=== PATIENT | male | born 1960 | race Caucasian/White ===

== ENCOUNTER 2018-03-20 00:04 | Observation (INO) | payer MEDICARE, MEDICAID, SELFPAY ==
--- NOTE | 2018-03-19 23:47 | DI.CT.S_ITS ---
PROCEDURE: CT HEAD/BRAIN WO CON INDICATIONS: stroke TECHNIQUE: Noncontrast 4.5 mm thick angled axial sections acquired from the foramen magnum to the vertex, with coronal and sagittal reformats. For radiation dose reduction, the following was used: automated exposure control, adjustment of mA and/or kV according to patient size. COMPARISON: [facility], CT, HEAD WITHOUT CONTRAST, 05/16/2017, 19:26. FINDINGS: Image quality: Excellent. CSF spaces: Basal cisterns are patent. No extra-axial fluid collections. Ventricles are normal in size and shape. Brain: No midline shift. Multiple presumed chronic lacunar infarcts involving the basal ganglia bilaterally, right cerebellar hemisphere, and bilateral thalami. No intracranial masses or hemorrhage. Allred-white matter interface is normal. Skull and face: Calvarium and visualized facial bones are intact, without suspicious lesions. Sinuses: Visualized sinuses and mastoids are clear. IMPRESSION: Multiple white matter hypodensities presumably chronic lacunar infarcts as detailed above. No acute intracranial process. Concordant with the preliminary study interpretation. Dictated by: Toni Lopez M.D. on 03/20/2018 at 7:36 Approved by: Toni Lopez M.D. on 03/20/2018 at 7:38
[2018-03-20] VITALS (11 sets, daily range): BP systolic 147–229; BP diastolic 93–126; PULSE 68–88; RESP 18–22; TEMP 36.6–37.1; O2SAT 94–98; BMI 32.5
--- NOTE | 2018-03-20 00:04 | ED.NEUROSD ---
HPI - Neuro Symptoms/Deficit General Chief Complaint: Neuro Symptoms/Deficit Stated Complaint: Possible Stroke Time Seen by Provider: 03/20/18 00:04 Source: patient and EMS Mode of arrival: EMS Limitations: no limitations History of Present Illness HPI Narrative: A 57-year-old male with extensive history of hypertension, coronary artery disease, colon and lung cancer presents with sudden onset right-sided the neurologic symptoms that started probably at 2300. He lives at home alone and noted these findings and called EMS for transportation. They arrived and found him with similar symptoms. He additionally complains that he had had some blurred vision which had resolved prior to his arrival. There unsuccessful placing an IV given his history of IV drug abuse. Given her symptoms and time frame patient with activated as a code stroke and taken directly for CT head scan Onset (ago): hour(s) Time: 23:00 Location: speech, right arm and right leg History of same: Yes Severity: moderate Quality: weak and numb Relieving factors: none Exacerbating factors: none Context: gradual onset Related Data Previous Rx's Medication Instructions Recorded metoprolol succinate 100 mg PO QDAY 30 Days #0 ter 10/02/17 levofloxacin [Levaquin] 750 mg PO QDAY #7 tab 11/20/17 metronidazole [Flagyl] 500 mg PO TID #21 tab 11/20/17 Allergies Allergy/AdvReac Type Severity Reaction Status Date / Time cephalexin [From KEFLEX] Allergy Severe Unverified 12/14/17 12:56 codeine [CODEINE] Allergy Severe ANAPHYLACTIC Unverified 12/14/17 12:56 SHOCK NYLON ADHESIVE TAPE Allergy Unknown Uncoded 12/14/17 12:56 Review of Systems Review of Systems All systems reviewed & are unremarkable except as noted in HPI and below Constitutional Denies chills, Denies fever(s), Denies lethargy and Reports weakness Eyes Denies change in vision, Denies eye discharge, Denies irritation and Reports loss of vision ENT Ears, Nose, Mouth, and Throat: Denies change in voice, Denies neck pain and Denies sore throat Cardiovascular Denies chest pain, Denies irregular heart rhythm, Denies lightheadedness, Denies palpitations, Denies dyspnea, Denies dyspnea on exertion and Denies orthopnea Respiratory Denies cough, Denies dyspnea, Denies dyspnea on exertion and Denies wheezing Gastrointestinal Gastrointestinal: Denies abdominal pain, Denies change in bowel habits, Denies diarrhea, Denies nausea and Denies vomiting Genitourinary Denies hematuria, Denies flank pain, Denies urinary incontinence and Denies urinary urgency Musculoskeletal Denies neck pain and Reports numbness Integumentary/Breasts Denies pruritus, Denies erythema, Denies rash and Denies wounds Neurologic Denies confusion, Reports loss of vision, Reports numbness and Reports weakness Psychiatric Denies anxiety, Denies confusion, Denies depression, Denies homicidal ideation and Denies suicidal ideation Endocrine Denies palpitations Hematologic/Lymphatic Denies easy bruising Allergic/Immunologic Denies wheezing PFSH Social History household members: none Smoking Status: Current every day smoker alcohol intake: former Exam Narrative Exam Narrative: 57-year-old male resting comfortably in no obvious distress Initial Vital Signs Initial Vital Signs: Vital Signs Temperature 98.7 F 03/20/18 00:17 Pulse Rate 88 03/20/18 00:17 Respiratory Rate 18 03/20/18 00:17 Blood Pressure 214/122 H 03/20/18 00:17 Pulse Oximetry 98 03/20/18 00:17 Const General: cooperative and well developed Nutritional Appearance: well nourished Orientation: alert, awake, oriented x3 and not confused HENNJ Head: normocephalic and atraumatic Ears: external ears normal Nose: external nose normal and nasal discharge Face and sinus: face symmetric and No dry mucous membranes Mouth: oral mucosae normal and moist mucous membranes Teeth and gingiva: dentition normal Eyes Pupils: PERRL EOM: EOM intact bilaterally Neck Neck: normal visual inspection, full ROM and No tender Chest Chest: normal inspection of the chest Resp Effort & Inspection: normal respiratory effort, able to speak in complete sentences, no respiratory distress and no use of accessory muscles Auscultation: clear to auscultation bilaterally, no rales, no rhonchi and no wheezes GI Palpation: soft, no hepatosplenomegaly, No guarding, No pulsatile mass and No tender Auscultation: normal bowel sounds Skin General: no rashes or lesions noted, No jaundice and No petechiae Neuro General: alert, awake and oriented x3 Cranial Nerves: CN's II-XI intact bilaterally Cognition: normal cognition Speech: speech normal Motor: muscle tone normal throughout Sensory Exam: no sensory deficits noted Extrem General: full ROM, no clubbing, cyanosis or edema, no pedal edema and no calf tenderness Psych Appearance: well kempt Mental Status: mental status grossly normal Speech and Movement: agitated Attitude: cooperative Thought Content: normal and suicidality Judgment: judgment good Scores NIH Stroke Scale Level of Conciousness: Alert, keenly responsive Ask month/age: Answers both questions correctly. Open/close eyes, close hand: Performs both tasks correctly Best gaze horizontal: Normal Visual winn: No visual loss Facial palsy: Normal symetrical movement Left arm drift: No drift for full 10 sec Right arm drift: No drift for full 10 sec Left leg drift: No drift for full 10 sec Right leg drift: No drift for full 10 sec Limb ataxia: Absent Sensory on face/arms/legs: Normal, no sensory loss Best language: No aphasia, normal Dysarthria: Normal Extinction or inattention: No abnormality Total NIH Stroke scale score: 0 Course Orders Ordered: ED Orders 03/19/18 23:47 CT head/brain wo con Stat 03/20/18 00:05 Basic Metabolic Panel Stat Complete Blood Count AUTO DIFF Stat Partial Thromboplastin Time Stat Prothrombin Time INR Stat 03/20/18 00:07 Urine Drug Screen, Rapid Stat EKG-12 Lead Stat 03/20/18 07:00 MR stroke Stat Sodium Chloride (Normal Saline 0.9%) 1,000 mls @ 80 mls/hr IV CONT MARVIN Discontinued Medications Aspirin (Aspirin Chew) 324 mg PO NOW ONE Stop: 03/20/18 01:16 Last Admin: 03/20/18 01:35 Dose: 324 mg Sodium Chloride (Normal Saline 0.9%) 1,000 mls @ 150 mls/hr IV CONT MARVIN Last Infusion: 03/20/18 01:55 Dose: 150 mls/hr Admin: 03/20/18 01:01 Dose: 150 mls/hr Labetalol HCl (Trandate) 20 mg IV NOW ONE Stop: 03/20/18 00:51 Last Admin: 03/20/18 01:01 Dose: 20 mg Metoprolol Tartrate (Lopressor) 100 mg PO NOW ONE Stop: 03/20/18 01:17 Last Admin: 03/20/18 01:36 Dose: 100 mg Nicotine (Nicoderm) 14 mg TOP NOW ONE Stop: 03/20/18 00:50 Last Admin: 03/20/18 01:01 Dose: 14 mg Reevaluation(s) Reevaluation #1: patient continues to be asymptomatic. On arrival his BP was quite elevated and he was asymptomatic raising the question of whether this was HTN emergency or TIA, suggesting TIA given lack of symptoms and persistent HTN. Time: 01:15 Vital Signs - 8 hr 03/20/18 00:17 03/20/18 00:45 03/20/18 01:01 Temperature 98.7 F Pulse Rate 88 82 85 Respiratory Rate 18 18 Blood Pressure 214/122 H 199/109 H Blood Pressure [Left Arm] 229/115 H Pulse Oximetry 98 96 03/20/18 01:13 03/20/18 01:32 03/20/18 01:53 Temperature Pulse Rate 82 83 87 Respiratory Rate 21 18 Blood Pressure 181/93 H Blood Pressure [Left Arm] 170/93 H 181/93 H Pulse Oximetry 95 MDM - Neuro Symptoms/Deficit Lab Data Result diagrams: 03/20/18 00:05 03/20/18 00:05 Lab Results 03/20/18 03/20/18 03/20/18 Range/Units 00:05 00:05 00:05 WBC 12.2 H (4.5-11.0) X10^3/uL RBC 5.09 (4.5-5.9) X10^6/uL Hgb 15.1 (13.5-17.5) g/dL Hct 44.2 (41-53) % MCV 86.9 (80-100) fL MCH 29.6 (26-34) PG MCHC 34.1 (30-36) % RDW 13.5 (11.6-14.8) % Plt Count 162 (150-400) X10^3/uL Neut % (Auto) 67.3 (50-75) % Lymph % (Auto) 20.7 L (25-40) % [place] % (Auto) 8.7 (3-14) % Eos % (Auto) 2.5 (2-4) % Baso % (Auto) 0.8 (0-2) % Neut # (Auto) 8200 H (7428-7334) /uL PT 11.5 (10.1-12.7) SECONDS INR 1.1 (0.9-1.3) APTT 32 (26.4-36.2) SECONDS Sodium 143 (137-145) mmol/L Potassium 3.2 L (3.4-5.1) mmol/L Chloride 105 (98-107) mmol/L Carbon Dioxide 26 (22-32) mmol/L BUN 14 (9-20) mg/dL Creatinine 1.10 (0.66-1.25) mg/dL Estimated GFR > 60.0 (>60) mL/min BUN/Creatinine Ratio 12.7 (6-22) Glucose 125 H (70-100) mg/dL Calcium 9.3 (8.4-10.2) mg/dL Discharge Plan Departure Patient Disposition: Admitted as Observation Clinical Impression: Transient ischemic attack, acute, Hypertension Discharge Date/Time: 03/20/18 02:24 Interventions: ED Discharge Assessment Last Done: 03/20/18 02:21 Admit Date/Time: 03/20/18 01:27 Admit Provider: Rafa Metcalf V
[2018-03-20 00:35] LABS: INR 1.1 (0.9-1.3); Prothrombin Time 11.5 SECONDS (10.1-12.7)
[2018-03-20 00:37] LABS: PTT Partial Thromboplastin Tim 32 SECONDS (26.4-36.2)
[2018-03-20 00:39] LABS: BUN Creatinine Ratio 12.7 (6-22); Blood Urea Nitrogen 14 mg/dL (9-20); Calcium 9.3 mg/dL (8.4-10.2); Carbon Dioxide 26 mmol/L (22-32); Chloride 105 mmol/L (98-107); Estimated Glomerular Filt Rate > 60.0 mL/min (>60); Glucose 125 mg/dL (70-100); HEMOLYSIS < 15 (0-50); Potassium 3.2 mmol/L (3.4-5.1); Sodium 143 mmol/L (137-145)
[2018-03-20 00:45] LABS: Add Manual Diff / Slide Review NO; Basophils Percent Auto 0.8 % (0-2); Eosinophils Percent Auto 2.5 % (2-4); Hematocrit 44.2 % (41-53); Hemoglobin 15.1 g/dL (13.5-17.5); Lymphocytes Percent Auto 20.7 % (25-40); Mean Corpuscular HGB Conc 34.1 % (30-36); Mean Corpuscular Hemoglobin 29.6 PG (26-34); Mean Corpuscular Volume 86.9 fL (80-100); Monocytes Percent Auto 8.7 % (3-14); Neutrophils Absolute Auto 8200 /uL (3000-5900); Neutrophils Percent Auto 67.3 % (50-75); Platelet Count 162 X10^3/uL (150-400); Red Blood Cell Count 5.09 X10^6/uL (4.5-5.9); Red Cell Distribution Width 13.5 % (11.6-14.8); White Blood Cell Count 12.2 X10^3/uL (4.5-11.0)
[2018-03-20] MEDS: SODIUM CHLORIDE 0.9% 1,000 ML 150 ML IV (01:01)
[2018-03-20] MEDS: LABETALOL 20 MG/4 ML SYRINGE IV (01:01)
[2018-03-20] MEDS: NICOTINE 14 PATCH 14 MG TOP (01:01)
[2018-03-20] MEDS: ASPIRIN 81 MG TAB 324 MG PO (01:35)
[2018-03-20] MEDS: METOPROLOL 50 MG TABLET 100 MG PO (01:36)
--- NOTE | 2018-03-20 03:36 | PC.NURSE ---
Admit/ Shift note: Pt arrived via stretcher at 0215, able to amb in the room and to the bed, pt reported feeling weak. Tele placed on Pt. BP remains elevated. IV from ER infiltrated, now IV started in right upper arm, one attempt and tolerated well. Pt reports having sciatic pain. It is chronic, 7/10 most days and he reports that he uses recreational marijuana to manage the pain. Pt reports that he does not take his prescribed BP meds but uses the marijuana for his BP as well. States last used it 4-5 days ago. IV fluids running as ordered. Pt has full rom in all extremities, PP++, BT x 4, denies nausea. 95% O2 on RA, occ wheezes noted throughout all lung winn, but denies SOB. Pt oriented to the room, the bed controls and the call light.
--- NOTE | 2018-03-20 07:00 | DI.MRI.S_ITS ---
PROCEDURE: MR STROKE Pre- and post-contrast brain MRI, non-contrast brain MR angiogram, pre- and postcontrast neck MR angiogram INDICATIONS: TIA TECHNIQUE: Brain: Noncontrast axial T1 spin echo, axial T2 fast spin echo, sagittal and axial FLAIR, coronal T2 fast spin echo, axial gradient echo, axial diffusion and ADC through the brain. After the administration of contrast, axial 3D VIBE of the cranial vasculature and brain. Brain MRA: Non-contrast 3-D time of flight MR angiogram, with multiple rwuclpd-ppsnhitdl-cfsliyigjt (MIP) reformats performed. Neck MRA: Axial and sagittal TruFISP through the neck. Coronal dynamic MR angiogram during administration of contrast in the arterial and venous phases, with 3-dimenstional ifexjmn-xbwgxqlsf-yymgngtcde (MIP) reformats constructed from subtraction images. COMPARISON: [facility], CT, HEAD WITHOUT CONTRAST, 05/16/2017, 19:26. [facility], CT, CT HEAD/BRAIN WO CON, 03/19/2018, 23:59. FINDINGS: Image quality: Excellent. BRAIN: CSF spaces: Ventricles are normal in size and shape. Basal cisterns are patent. No extra-axial fluid collections. Brain: Within the right basal ganglia laterally, there is a 14 mm diameter region of high T1 and FLAIR signal intensity without evidence of enhancement following intravenous contrast administration. Gradient echo imaging of this region demonstrates a rim of low T2 signal intensity and internal high signal intensity. Allrde-white matter interface is normal. Diffusion weighted images demonstrate small 3-4 mm diameter foci of elevated signal intensity within the left external capsule and medial thalamus, which demonstrate low ADC map signal and mild FLAIR signal elevation. Mild diffuse cerebral volume loss. Mild degree of patchy high FLAIR signal intensity within the periventricular and subcortical white matter. Small chronic infarcts within the bilateral basal ganglia and periventricular white matter posteriorly. Small chronic right thalamic infarct. Brainstem appears normal. Normal intravascular flow voids are present. No abnormal intracranial enhancement. Skull and face: Calvarial marrow signal is normal. Orbits appear normal. Sinuses: Sinuses and mastoids are clear. BRAIN MR ANGIOGRAM: Anterior circulation: Intracranial internal carotid arteries are normal in size and enhancement. The flow within the paired anterior cerebral arteries is normal and symmetric. The flow within the middle cerebral arteries is normal and symmetric. The anterior communicating artery is seen. No stenoses, occlusions, or aneurysms. Posterior circulation: The visualized portions of the vertebral arteries demonstrate normal caliber, and join to form a normal appearing basilar artery. The flow within the posterior cerebral arteries is normal and symmetric. No stenoses, occlusions, or aneurysms. NECK MR ANGIOGRAM: Carotids: Common origin of innominate and left common carotid arteries. The origins of the common carotid arteries appear patent. The calibers and courses of both common carotid arteries are normal. The bifurcation regions appear normal bilaterally. The internal carotid arteries demonstrate normal course and caliber. Posterior circulation: The origins of the vertebral arteries appear patent. More superior portions of both vertebral arteries demonstrate normal course and caliber, and join to form a normal appearing basilar artery. Miscellaneous: Subclavian arteries appear patent. Pre-contrast images through the neck show no soft tissue abnormalities. IMPRESSION: BRAIN MRI: 1. Small subacute infarcts within the left external capsule and left thalamus. 2. 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 There is internal high T1 and high FLAIR signal intensity within this lesion, which may indicate superimposed acute hemorrhage. Followup brain MRI or CT examination in 6 hours is recommended for further assessment. 3. The clinician caring for the patient could not be contacted. Thus, the findings were discussed with the charge nurse on the floor, Tim, on 03.20.18 at 1215 hrs. He understood the urgent nature of the findings and agreed to communicate them to the physician caring for the patient immediately. BRAIN MRA: 1. Negative cerebral MR angiography NECK MRA: 1. No internal carotid stenosis bilaterally. 2. Patent bilateral vertebral arteries. Dictated by: Nargis Ferrera M.D. on 03/20/2018 at 12:14 Approved by: Nargis Ferrera M.D. on 03/20/2018 at 12:33
[2018-03-20] MEDS: ENOXAPARIN 40 MG/0.4 ML SYRINGE SUBCUT (09:02)
[2018-03-20] MEDS: AMLODIPINE 5 MG TABLET 10 MG PO (09:02)
[2018-03-20] MEDS: POTASSIUM CHLORIDE 20 MEQ TAB PO (09:02)
[2018-03-20] MEDS: METOPROLOL ER 50 MG TABLET 100 MG PO (09:03)
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
--- NOTE | 2018-03-20 09:13 | CM.DPNOTE ---
Discharge Planning/Care Management DCP: assessment: Case received, EMR reviewed and met briefly with pt. Introduced self and role. Pt is a 57 year old male who admitted early this morning to care of hospitalist team. He is dozing in bed but does rouse to answer a couple of questions. Payer: Medicare and Medicaid. Pt confirms his contact is his mother Shaila Díaz and she will pick him up if he is d/c'd to home. He is here under observation status: UR RN Johana is reviewing. CM/social work referral is recommended and TORO Flores agrees to accept and follow prn. CM Discharge Assessment Start: 03/20/18 08:53 Freq: Status: Active Protocol: Document 03/20/18 08:54 ITV (Rec: 03/20/18 09:12 ITV [id number]) Discharge Planning Assessment History Provided By Patient Medical Record Is this patient on Medicare? Yes Prior Living Arrangements House Household Members none Transportation Arrangement If pt does d/c to home he says his mother, Shaila Díaz, will pick him up. 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 A social work consult was recommended. CM TORO agrees to accept. Review Status In Process Next Review Type Continued Stay Review
[2018-03-20] MEDS: LORazepam 1 MG TABLET PO (10:49)
--- NOTE | 2018-03-20 10:52 | PC.NURSE ---
Day shift: Pt ambulating in the lee on his own. Steady on feet. No s/s of chest pain or distress. Gave PO Ativan just now for upcoming MRI. Pt has drank 2 cups of coffee. Low fall risk per assessment.
--- NOTE | 2018-03-20 11:34 | PC.NURSE ---
Day shift: Off unit for MRI at approx 1120.
--- NOTE | 2018-03-20 12:07 | PC.NURSE ---
Day shift: Back on unit at approx 1207.
--- NOTE | 2018-03-20 12:37 | PC.NURSE ---
Day shift: Per discussion w/ extension service specialist in charge whom talked w/ Dr Mae the Lovenox injection orders have been stopped at this time. Pt walking in halls and borderline uncooperative. He states that he wants to go down and have a smoke.
--- NOTE | 2018-03-20 12:41 | PC.NURSE ---
12:[address] Ferrera re Pt Guillermo Díaz. Dr Ferrera stated information that he wanted to pass to Dr. Mae. Dr. Mae notified by phone with results of study by Dr. Ferrera. JIGAR Thompson informed as well of conversation and Dr Mae's verbal order to hold lovenox.
[2018-03-20 13:03] LABS: Hemoglobin A1C% w Est Avg Glu 5.5 % (4.0-6.0)
--- NOTE | 2018-03-20 13:14 | PC.NURSE ---
Day shift: Pt back on unit after going downstairs and being gone for approx 1/2 hour. He is in his room now.
--- NOTE | 2018-03-20 13:35 | PC.NURSE ---
Day shift: Discussed w/ Pt, in very simple terms, that he has a small bleed in the brain due to HTN and he needs to take it easy. He agrees to not go downstairs on his own again. He is a daily smoker. Dr Mae made aware of need for nicotine patch. Pt steady on feet and asymptomatic of any TIA or stroke. Low fall risk and independent in room.
[2018-03-20 13:49] LABS: Urine Amphetamines Negative (Negative); Urine Barbiturates Negative (Negative); Urine Benzodiazepines Negative (Negative); Urine Cocaine Negative (Negative); Urine MDMA Negative (Negative); Urine Methadone Negative (Negative); Urine Methamphetamines Negative (Negative); Urine Morphine/Opi cutoff 2000 Negative (Negative); Urine Oxycodone Negative (Negative); Urine Phencyclidine Negative (Negative); Urine Tetrahydrocannabinol Negative (Negative); Urine Tricyclic Antidepressant Negative (Negative)
--- NOTE | 2018-03-20 13:50 | PC.NURSE ---
Day shift: Refused placement of TELE after return from MRI. Discussed Pt's current disposition w/ Dr Mae. Patch ordered and will be placed stat.
[2018-03-20] MEDS: LOSARTAN 50 MG TABLET PO (13:55)
[2018-03-20] MEDS: NICOTINE 21 MG PATCH TOP (13:55)
--- NOTE | 2018-03-20 17:07 | CM.SWNOTE ---
MOTORBIKE COURIER Note: Reviewed chart. Received verbal referral from [facility]iposa/RODRI requesting MOTORBIKE COURIER consult for mental health and substance abuse history. Met with patient explained MOTORBIKE COURIER role. Patient alert and oriented at time of visit. Patient's Mother/Linda Díaz at bedside. Patient provided MOTORBIKE COURIER with permission to update his Mother on planning but reports that he is his own decision maker. Patient has h/o alcohol and meth abuse. Patient reports last drink was quit some time ago? Patient unsure on how long it's actually been but says awhile. Last illegal drug patient admits to using is meth in August 2017. Patient denies any active drug or alcohol abuse. Patient does report that he smokes marijuana prn. Currently patient resides alone and receives 72hrs per month of care giving hours under [facility]. Patient reports that he qualifies for program because of numerous back issues and hepatitis C. JOCELYNN is [facility] ph# [phone]. MOTORBIKE COURIER asked TALIB/Mary Ann to fax h&p to JOCELYNN 's attention at home and community. Patient reports that he drives at baseline. Patient's Mother concerned about patient's ability to properly care for himself. Per patient caregivers have been difficult to come by and even more difficult to keep. MOTORBIKE COURIER suggested possibility of AF in future for long-term planning. Patient does not believe he needs that at this time. Discussed long-term benefit and patient appeared more receptive. Patient and Mother aware that patient most likely will d/c home when stable and long-term planning will need to continue with JOCELYNN . Patient up in room and ambulating in [facility] hallways. P: Anticipate home when stable. MOTORBIKE COURIER to follow up with JOCELYNN for labor relations or personnel negotiator planning assessment. Patient good candidate for AFH that caters to individuals near his age. TORO Parker
--- NOTE | 2018-03-20 18:00 | DI.CT.S_ITS ---
PROCEDURE: CT HEAD/BRAIN WO CON INDICATIONS: acute intracerebral bleed. TECHNIQUE: Noncontrast 4.5 mm thick angled axial sections acquired from the foramen magnum to the vertex, with coronal and sagittal reformats. For radiation dose reduction, the following was used: automated exposure control, adjustment of mA and/or kV according to patient size. COMPARISON: [facility], MR, MR STROKE, 03/20/2018, 11:27. [facility], CT, CT HEAD/BRAIN WO CON, 03/19/2018, 23:59. FINDINGS: Image quality: Excellent. The ventricular system and cortical sulci demonstrate atrophy, consistent for the patient's stated age. There are areas of hypodense signal within the periventricular and subcortical white matter. Low attenuation is present within the left external capsule and thalamus consistent with previously seen ischemia. There is no acute intra-or extra axial fluid collection. No acute hemorrhage, mass lesion or midline shift. Brainstem is unremarkable. Globes are symmetrical. Sinuses are aerated. Osseous structures are intact. IMPRESSION: 1. No acute intracranial process. 2. Moderate atrophy and chronic microvascular ischemic changes. Dictated by: Meli Loo M.D. on 03/20/2018 at 18:17 Approved by: Meli Loo M.D. on 03/20/2018 at 18:27
--- NOTE | 2018-03-20 19:21 | PC.NURSE ---
Addendum entered by Tiffanie Thomas R.N. 03/20/18 19:41: Additionally, pt kept stating that he was wanted by [place] security and how he can make explosives w/MOM. Original Note: Pt appeared very irritated from 1500 on. Pt leaving floor x 2 to go outside and smoke and told not to and explained why. Pt then pacing in room, playing loud hard metal music, stating he wrote all the songs. 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 Continued to mention terrorists ideals and stated that he 'makes the best meth' and gave a detailed explanation. Security called as well as Elizabeth VALLEJO. Dr. Mae also notified about situation, no new orders. Pt then decided to leave [facility], form signed and pt escorted out of facility by [facility] and and Elizabeth VALLEJO.
--- NOTE | 2018-03-20 19:53 | P.DS_ITS ---
History of Present Illness Chief complaint: Possible Stroke Narrative: 57-year-old male with history of hypertension noncompliant with medication presents with episode of right-sided numbness and may be involving his face arm and leg. Symptoms lasted for about 45 min and then resolved. He came into the emergency room at the start of the symptoms but by the time he got here they are pretty much resolved. Blood pressure was extremely high 220/ 122. He has not taken medications for blood pressure for blood pressure for quite some time he is very nonspecific about what was prescribed in how long it has been since he took it he is somewhat uncooperative with questioning. It appears he has a similar presentation with uncontrolled hypertension about 2 years ago here to the hospital. Denies chest pain and denies shortness of breath currently denies any other neurologic symptoms Discharge Providers Date of admission: 03/20/18 01:27 Discharge provider: Alfredo Mae MD Summary Discharge Diagnosis: One. Subacute infarct in the left external capsule and left thalamus 2. Severe uncontrolled hypertension Hospital Course: Patient presented to the ER with right-sided numbness that lasted for about 45 min and then went away no other neurologic symptoms. 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 At that point the patient had no symptoms he had no more neurologic symptoms no headache no nausea no symptoms of acute bleed and there was no new neurologic symptoms his previous numbness had totally resolved. Blood pressure was still high so we kept treating the blood pressure with labetalol IV and oral Lopressor losartan and amlodipine in the blood pressure gradually came down. A repeat CT scan was done 6 hr after to see if there is any signs of bleeding and it was read as completely normal. These 2nd CT was done at about 6:00 p.m. and was read by Radiology shortly thereafter I was contacted by nursing staff at approximately 7:00 p.m. indicating the patient was very agitated and demanding to leave [facility]. I told him that I would be in shortly to talk with the patient by the by the time I got here the patient had had already left against medical advice and without any prescription for hypertension. He had been prescribed blood pressure medications in the past but never took them. Status at Discharge Functional status at discharge: independent ambulation Exam Vital Signs (past 8 hours): - 03/20/18 13:00 03/20/18 18:20 Temperature 98.1 F 98.4 F Pulse Rate 75 82 Respiratory Rate 22 22 Blood Pressure 163/99 H 147/93 H Pulse Oximetry 96 94 Oxygen Delivery Method Room Air Objective Labs Result Diagrams: 03/20/18 00:05 03/20/18 00:05 Labs: Laboratory Results - last 24 hr 03/20/18 03/20/18 03/20/18 00:05 00:05 00:05 WBC 12.2 H RBC 5.09 Hgb 15.1 Hct 44.2 MCV 86.9 MCH 29.6 MCHC 34.1 RDW 13.5 Plt Count 162 Neut % (Auto) 67.3 Lymph % (Auto) 20.7 L [place] % (Auto) 8.7 Eos % (Auto) 2.5 Baso % (Auto) 0.8 Neut # (Auto) 8200 H PT 11.5 INR 1.1 APTT 32 Sodium 143 Potassium 3.2 L Chloride 105 Carbon Dioxide 26 BUN 14 Creatinine 1.10 Estimated GFR > 60.0 BUN/Creatinine Ratio 12.7 Glucose 125 H Hemoglobin A1c Calcium 9.3 Urine Opiates Screen Ur Oxycodone Screen Urine Methadone Screen Ur Barbiturates Screen U Tricyclic Antidepress Ur Phencyclidine Scrn Ur Amphetamines Screen U Methamphetamines Scrn Ur MDMA Scrn (Ecstasy) U Benzodiazepines Scrn Urine Cocaine Screen U Marijuana (THC) Screen 03/20/18 03/20/18 12:50 Unknown WBC RBC Hgb Hct MCV MCH MCHC RDW Plt Count Neut % (Auto) Lymph % (Auto) [place] % (Auto) Eos % (Auto) Baso % (Auto) Neut # (Auto) PT INR APTT Sodium Potassium Chloride Carbon Dioxide BUN Creatinine Estimated GFR BUN/Creatinine Ratio Glucose Hemoglobin A1c 5.5 Calcium Urine Opiates Screen Negative Ur Oxycodone Screen Negative Urine Methadone Screen Negative Ur Barbiturates Screen Negative U Tricyclic Antidepress Negative Ur Phencyclidine Scrn Negative Ur Amphetamines Screen Negative U Methamphetamines Scrn Negative Ur MDMA Scrn (Ecstasy) Negative U Benzodiazepines Scrn Negative Urine Cocaine Screen Negative U Marijuana (THC) Screen Negative Discharge Plan Discharge Plan Discharge Problem: Transient ischemic attack, acute, Hypertension Patient Disposition: Left Against Medical Advice Discharge Data Attending Provider: Rafa Metcalf V Admit Date/Time: 03/20/18 01:27
--- NOTE | 2018-03-21 10:34 | CM.DPNOTE ---
DCP/continued: Reviewed chart. Patient discharged from [facility] on 03-20-18. METER SHOP SUPERVISOR asked TALIB/Mary Ann to fax d/c summary to JOCELYNN/KRUPA at [facility] P: Home TORO Parker
== END 2018-03-20 19:20 | disposition left against medical advice (07) ==
LOC: ED 01:23 → AC 01:27
PROVIDERS: Internal Medicine; Admitting Provider Internal Medicine; Emergency Provider Emergency Medicine; Visit Provider Internal Medicine
DX: I63.8 Other cerebral infarction (principal); R53.1 Weakness; I10 Essential (primary) hypertension; Z91.14 Patient's other noncompliance with medication regimen; F17.210 Nicotine dependence, cigarettes, uncomplicated; Z53.21 Procedure and treatment not carried out due to patient leaving prior to being seen by health care provider; F15.11 Other stimulant abuse, in remission
CPT/HCPCS: 36415; 70450; 70553; 80048; 80305; 83036; 85025; 85610; 85730; 93005; 96361; 96374; 99283; 99285; 99291; 99292; G0378; J1650

== ENCOUNTER 2020-10-23 10:25 | Emergency (ER) | payer MEDICARE, MEDICAID, SELFPAY ==
[2018-03-20 02:37] VITALS: BMI 32.5
[2020-10-23 10:35] VITALS: BP 214/102; PULSE 90; RESP 18; TEMP 36.6; O2SAT 95; BMI 28.7
--- NOTE | 2020-10-23 10:37 | DI.CT.S_ITS ---
PROCEDURE: CT HEAD/BRAIN WO CON INDICATIONS: left sided ataxia TECHNIQUE: Noncontrast 4.5 mm thick angled axial sections acquired from the foramen magnum to the vertex, with coronal and sagittal reformats. For radiation dose reduction, the following was used: automated exposure control, adjustment of mA and/or kV according to patient size. COMPARISON: [facility], CT, CT HEAD TPA, 06/19/2018, 18:29. FINDINGS: Image quality: Excellent. CSF spaces: Basal cisterns are patent. No extra-axial fluid collections. Ventricles are normal in size and shape. Brain: Prior right cerebellar infarct. Small lacunar infarcts in the left occipital lobe. Multifocal intracranial atherosclerosis in both the anterior and posterior circulation. No loss of lindsey-white matter differentiation to serve as CT evidence of acute large territory infarct. No acute intracranial hemorrhage. Global cerebral volume loss and chronic microvascular ischemic changes. Skull and face: Calvarium and visualized facial bones are intact, without suspicious lesions. Sinuses: Visualized sinuses and mastoids are clear. IMPRESSION: No acute intracranial abnormality demonstrated. Global cerebral volume loss and chronic microvascular ischemic changes. Remote infarcts as seen on prior study. MRI recommended if there is continued clinical concern for acute ischemia. Dictated by: Charles Curtis M.D. on 10/23/2020 at 11:29 Approved by: Charles Curtis M.D. on 10/23/2020 at 11:30
--- NOTE | 2020-10-23 11:01 | ED_ITS ---
HPI - Altered Mental Status General Chief Complaint: Neuro Symptoms/Deficit Stated Complaint: SI/Poss Stroke Time Seen by Provider: 10/23/20 10:36 Source: patient and old records reviewed History of Present Illness HPI narrative: Patient is a 60-year-old male who admits to using methamphetamine and marijuana daily. He does have a history of emphysema COPD. Presents today with variety of complaints. He says that last night he may have had a stroke he has some left-sided weakness. He says they can not ever prove that he had a stroke at this is happened to him in the past. He denies any chest pain nausea vomiting. He says that he looks at the news and is tired of all the bull shit he does not have a specific thoughts of hurting himself. He does seem bit paranoid and delusional. He says he is not suicidal or is was homicidal. But staff is a he may have suicidal thoughts at times but no specific plan. Related Data Home Medications Medication Instructions Recorded Confirmed albuterol sulfate [Ventolin HFA] 03/20/18 albuterol sulfate [Ventolin HFA] 03/20/18 sofosbuvir-velpatasvir [Epclusa] 03/20/18 Allergies Allergy/AdvReac Type Severity Reaction Status Date / Time cephalexin [From KEFLEX] Allergy Severe Unverified 12/14/17 12:56 codeine [CODEINE] Allergy Severe ANAPHYLACTIC Unverified 12/14/17 12:56 SHOCK NYLON ADHESIVE TAPE Allergy Unknown Uncoded 12/14/17 12:56 Review of Systems Review of Systems ROS Unobtainable: All systems reviewed & are unremarkable except as noted in HPI and below Constitutional Constitutional: Denies chills, Denies fever(s), Denies lethargy and Reports weakness ENT Ears, Nose, Mouth, and Throat: Denies change in voice, Denies neck pain and Denies sore throat Cardiovascular Cardiovascular: Denies chest pain, Denies irregular heart rhythm, Denies lightheadedness, Denies palpitations, Denies dyspnea, Denies dyspnea on exertion and Denies orthopnea Respiratory Respiratory: Denies cough, Denies dyspnea, Denies dyspnea on exertion and Denies wheezing Gastrointestinal Gastrointestinal: Denies abdominal pain, Denies change in bowel habits, Denies diarrhea, Denies nausea and Denies vomiting Musculoskeletal Musculoskeletal: Denies neck pain and Reports numbness Integumentary/Breasts Skin/Breast: Denies pruritus, Denies erythema, Denies rash and Denies wounds Neurologic Neurologic: Reports as per HPI, Reports localized weakness (Left-sided), Reports numbness and Reports weakness Endocrine Endocrine: Denies palpitations Allergic/Immunologic Allergic/Immunologic: Denies wheezing Patient History Medical History Hepatitis C Hypertension Social History household members: none Smoking Status: Current every day smoker alcohol intake: former Smoking Status: Current every day smoker alcohol intake frequency: 0-2 drinks per day Substance Use Type: marijuana and methamphetamine Exam Initial Vital Signs Initial Vital Signs: Vital Signs Temperature 98 F 10/23/20 10:35 Pulse Rate 90 10/23/20 10:35 Respiratory Rate 18 10/23/20 10:35 Blood Pressure 214/102 H 10/23/20 10:35 Pulse Oximetry 95 10/23/20 10:35 GENERAL: Alert 60-year-old male and in no acute distress. HEENT: Head atraumatic,EOMI, pupils reactive, face symmetric, moist mucous membranes CARDIOVASCULAR: Regular rate and rhythm without murmurs, rubs or gallops. RESPIRATORY: Breath sounds equal bilaterally, no wheezes rales or rhonchi. ABDOMEN: Soft, nontender. Normoactive bowel sounds all 4 quadrants. No guarding or rebound. EXTREMITIES: Normal range of motion, no clubbing or edema. Neurovascularly intact NEUROLOGICAL: Alert and oriented x4.Normal gait and speech. Cranial nerves II through XII grossly intact. Positive ataxia with left hand. Refusing to do lower extremity exam but currently sitting with his left leg over his right leg. He was ambulatory to the [facility] with out any assistance. Face is symmetric no aphasia or dysphagia SKIN: Warm, dry, no laceration, no petechiae, no rashes or lesions. Psych Appearance: well kempt Speech and Movement: agitated Thought Content: delusions Scores NIH Stroke Scale Level of Conciousness: Alert, keenly responsive Ask month/age: Answers both questions correctly. Open/close eyes, close hand: Performs both tasks correctly Best gaze horizontal: Normal Visual winn: No visual loss Facial palsy: Normal symetrical movement Left arm drift: No drift for full 10 sec Right arm drift: No drift for full 10 sec Left leg drift: No drift for full 5 sec Right leg drift: No drift for full 5 sec Limb ataxia: Present in one limb Sensory on face/arms/legs: Normal, no sensory loss Best language: No aphasia, normal Dysarthria: Normal Extinction or inattention: No abnormality Total NIH Stroke scale score: 1 Course Orders Ordered: ED Orders 10/23/20 10:37 Consult to LARYNGOLOGIST - Wet Pour Supervisor Stat CT head/brain wo con Stat 10/23/20 10:50 EKG-12 Lead Stat 10/23/20 10:56 Complete Blood Count AUTO DIFF Stat Comprehensive Metabolic Panel Stat Ethanol (ETOH) Stat Partial Thromboplastin Time Stat Prothrombin Time INR Stat Troponin & CK Cardiac Panel Stat 10/23/20 11:46 Urine Drug Screen, Rapid Stat Discontinued Medications Diphenhydramine HCl (Diphenhydramine 50 Mg/Ml Vial) 50 mg IM NOW ONE Stop: 10/23/20 12:29 Haloperidol (Haloperidol 5 Mg/Ml Vial) 5 mg IM NOW ONE Stop: 10/23/20 12:29 Lidocaine HCl (Lidocaine 2% (Urojet) 5 Ml Gel) 5 ml TOP NOW ONE Stop: 10/23/20 11:28 Olanzapine (Olanzapine Odt 10 Mg Tab) 10 mg PO NOW ONE Stop: 10/23/20 10:38 Vital Signs Vital signs: Vital Signs - 8 hr 10/23/20 11:59 Pulse Rate 98 H Respiratory Rate 15 Blood Pressure 212/95 H Pulse Oximetry 95 MDM - Altered Mental Status Lab Data Attestation: I reviewed the patient's lab results. Result diagrams: 10/23/20 10:56 10/23/20 10:56 Labs: Lab Results 10/23/20 10/23/20 10/23/20 Range/Units 10:56 10:56 10:56 WBC 11.7 H (4.5-11.0) X10^3/uL RBC 5.17 (4.5-5.9) X10^6/uL Hgb 15.0 (13.5-17.5) g/dL Hct 44.7 (41-53) % MCV 86.5 (80-100) fL MCH 28.9 (26-34) PG MCHC 33.4 (30-36) % RDW 12.5 (11.6-14.8) % Plt Count 177 (150-400) X10^3/uL Neut % (Auto) 76.8 H (50-75) % Lymph % (Auto) 10.3 L (25-40) % [place] % (Auto) 10.3 (3-14) % Eos % (Auto) 1.8 L (2-4) % Baso % (Auto) 0.8 (0-2) % Neut # (Auto) 9000 H (1606-5756) /uL Lymph # (Auto) 1200 (4109-0336) /uL [place] # (Auto) 1200 H (0-900) /uL Eos # (Auto) 200 (0-450) /uL Baso # (Auto) 100 (0-100) /uL PT 10.8 (10.1-12.7) SECONDS INR 0.9 (0.9-1.3) APTT 31 (26.4-36.2) SECONDS Sodium 131 L (137-145) mmol/L Potassium 5.3 H (3.4-5.1) mmol/L Chloride 97 L (98-107) mmol/L Carbon Dioxide 25 (22-32) mmol/L BUN 18 (9-20) mg/dL Creatinine 0.75 (0.66-1.25) mg/dL Estimated GFR > 60.0 (>60) mL/min BUN/Creatinine Ratio 24.0 H (6-22) Glucose 410 H (80-110) mg/dL Calcium 9.6 (8.4-10.2) mg/dL Total Bilirubin 1.2 (0.2-1.3) mg/dL AST 58 (17-59) IU/L ALT 22 (<50) IU/L Alkaline Phosphatase 130 H (38-126) U/L Total Creatine Kinase 158 (55-170) U/L CK-MB (CK-2) 2.32 (<2.37) ng/mL CK-MB (CK-2) Rel Index 1.5 (1.5-5.0) % Troponin I 0.032 (0.01-0.034) ng/mL Total Protein 8.3 H (6.3-8.2) g/dL Albumin 4.5 (3.5-5.0) g/dL Globulin 3.8 (1.7-4.1) g/dL Albumin/Globulin Ratio 1.2 (1.0-2.8) U Opiates 300ng/mL cut (Negative) Ur Oxycodone Screen (Negative) Urine Methadone Screen (Negative) Ur Barbiturates Screen (Negative) U Tricyclic Antidepress (Negative) Ur Phencyclidine Scrn (Negative) Ur Amphetamines Screen (Negative) U Methamphetamines Scrn (Negative) Ur MDMA Scrn (Ecstasy) (Negative) U Benzodiazepines Scrn (Negative) Urine Cocaine Screen (Negative) U Marijuana (THC) Screen (Negative) Ethyl Alcohol < 10 ( - 10) mg/dL 10/23/20 Range/Units 11:46 WBC (4.5-11.0) X10^3/uL RBC (4.5-5.9) X10^6/uL Hgb (13.5-17.5) g/dL Hct (41-53) % MCV (80-100) fL MCH (26-34) PG MCHC (30-36) % RDW (11.6-14.8) % Plt Count (150-400) X10^3/uL Neut % (Auto) (50-75) % Lymph % (Auto) (25-40) % [place] % (Auto) (3-14) % Eos % (Auto) (2-4) % Baso % (Auto) (0-2) % Neut # (Auto) (9818-9198) /uL Lymph # (Auto) (6450-5456) /uL [place] # (Auto) (0-900) /uL Eos # (Auto) (0-450) /uL Baso # (Auto) (0-100) /uL PT (10.1-12.7) SECONDS INR (0.9-1.3) APTT (26.4-36.2) SECONDS Sodium (137-145) mmol/L Potassium (3.4-5.1) mmol/L Chloride (98-107) mmol/L Carbon Dioxide (22-32) mmol/L BUN (9-20) mg/dL Creatinine (0.66-1.25) mg/dL Estimated GFR (>60) mL/min BUN/Creatinine Ratio (6-22) Glucose (80-110) mg/dL Calcium (8.4-10.2) mg/dL Total Bilirubin (0.2-1.3) mg/dL AST (17-59) IU/L ALT (<50) IU/L Alkaline Phosphatase (38-126) U/L Total Creatine Kinase (55-170) U/L CK-MB (CK-2) (<2.37) ng/mL CK-MB (CK-2) Rel Index (1.5-5.0) % Troponin I (0.01-0.034) ng/mL Total Protein (6.3-8.2) g/dL Albumin (3.5-5.0) g/dL Globulin (1.7-4.1) g/dL Albumin/Globulin Ratio (1.0-2.8) U Opiates 300ng/mL cut Negative (Negative) Ur Oxycodone Screen Negative (Negative) Urine Methadone Screen Negative (Negative) Ur Barbiturates Screen Negative (Negative) U Tricyclic Antidepress Negative (Negative) Ur Phencyclidine Scrn Negative (Negative) Ur Amphetamines Screen Positive H (Negative) U Methamphetamines Scrn Positive H (Negative) Ur MDMA Scrn (Ecstasy) Negative (Negative) U Benzodiazepines Scrn Negative (Negative) Urine Cocaine Screen Negative (Negative) U Marijuana (THC) Screen Negative (Negative) Ethyl Alcohol ( - 10) mg/dL Urine Dip Bedside Urine Glucose 1000 mg/dl Bedside Urine Bilirubin - Negative Bedside Urine Ketone - Negative Urine Specific [place] 1.020 Bedside Urine Occult Blood - Negative Bedside Urine pH 6.0 Bedside Urine Protein - Negative Bedside Urine Urobilinogen - Negative Bedside Urine Nitrite - Negative Bedside Urine Leukocytes - Negative Esterase Imaging Data CT scan - head: Radiologist's Impression: PROCEDURE: CT HEAD/BRAIN WO CON INDICATIONS: left sided ataxia TECHNIQUE: Noncontrast 4.5 mm thick angled axial sections acquired from the foramen magnum to the vertex, with coronal and sagittal reformats. For radiation dose reduction, the following was used: automated exposure control, adjustment of mA and/or kV according to patient size. COMPARISON: [facility], CT, CT HEAD TPA, 06/19/2018, 18:29. FINDINGS: Image quality: Excellent. CSF spaces: Basal cisterns are patent. No extra-axial fluid collections. Ventricles are normal in size and shape. Brain: Prior right cerebellar infarct. Small lacunar infarcts in the left occipital lobe. Multifocal intracranial atherosclerosis in both the anterior and posterior circulation. No loss of lindsey-white matter differentiation to serve as CT evidence of acute large territory infarct. No acute intracranial hemorrhage. Global cerebral volume loss and chronic microvascular ischemic changes. Skull and face: Calvarium and visualized facial bones are intact, without suspicious lesions. Sinuses: Visualized sinuses and mastoids are clear. IMPRESSION: No acute intracranial abnormality demonstrated. Global cerebral volume loss and chronic microvascular ischemic changes. Remote infarcts as seen on prior study. MRI recommended if there is continued clinical concern for acute ischemia. Dictated by: Charles Curtis M.D. on 10/23/2020 at 11:29 ECG Data Attestation: I personally reviewed and interpreted this ECG as follows: Interpretation: Normal sinus rhythm rate 85 p.r. interval 183 QRS [address] changes no T-wave inversions artifact noted MDM Narrative Medical decision making narrative: The patient overall is not significantly cooperative but does allow us to do workup. He is noted to have some left ataxia in his hand but is moving about the room quite easily. He has had a stroke previously difficult to discern if this is old or new. He overall does seem paranoid and preoccupied by other thoughts and what is going on. Does not think COVID is real intermittently will wear his mask despite repeated request to wear it. Social Work Ledy in room to evaluate alongside myself. This time overall does not seem gravely disabled or incapacitated. He is positive for methamphetamine which she is open to. He talks about multiple drugs that he uses including heroin. The police were actually called his patient was escalating quite a bit. It is very clear he does not want to stay and wants to leave. At this time blood work and CT are overall reassuring. He did say he would need a cabulance home which I said was said I would not provide for him he said he would jump out the back of the cabulance only because he did not want to go to [facility]. He would jump out and walk the rest of the way. He had no intent of jumping out to kill himself. At this time he does not seem to meet inpatient criteria. Discharge Plan Departure Patient Disposition: Home Clinical Impression: Acute urinary retention, Polysubstance abuse Instructions: DI for Urinary Retention in Men Activity Restrictions/Additional Instructions: *You have been diagnosed with urinary retention *What to do: Keep Mcgrath catheter in place for at least 2 weeks please have your primary care provider removing you may need referral to Urology Stop using methamphetamine here when and marijuana *Continue to take medications as directed *Follow up with your primary care provider in 2-3 days *Return to ER if you should have any new, worsening or concerning symptoms Prescriptions: No Action sofosbuvir-velpatasvir [Epclusa] 400-100 mg tablet RF: 0 albuterol sulfate [Ventolin HFA] 90 mcg/actuation HFA aerosol inhaler RF: 0 albuterol sulfate [Ventolin HFA] 90 mcg/actuation HFA aerosol inhaler RF: 0
--- NOTE | 2020-10-23 11:18 | PC.NURSE ---
patient came into the ED with complaints of stroke symptoms. After 4 attempts he complains that IV attempts are two painful and would like to be numbed before IV access.
[2020-10-23 11:31] LABS: Add Manual Diff / Slide Review NO; Basophils Absolute Auto 100 /uL (0-100); Basophils Percent Auto 0.8 % (0-2); Eosinophils Absolute Auto 200 /uL (0-450); Eosinophils Percent Auto 1.8 % (2-4); Hematocrit 44.7 % (41-53); Lymphocytes Absolute Auto 1200 /uL (1100-4500); Lymphocytes Percent Auto 10.3 % (25-40); Mean Corpuscular HGB Conc 33.4 % (30-36); Mean Corpuscular Hemoglobin 28.9 PG (26-34); Mean Corpuscular Volume 86.5 fL (80-100); Monocytes Absolute Auto 1200 /uL (0-900); Monocytes Percent Auto 10.3 % (3-14); Neutrophils Absolute Auto 9000 /uL (1500-7000); Neutrophils Percent Auto 76.8 % (50-75); Platelet Count 177 X10^3/uL (150-400); Red Blood Cell Count 5.17 X10^6/uL (4.5-5.9); Red Cell Distribution Width 12.5 % (11.6-14.8); White Blood Cell Count 11.7 X10^3/uL (4.5-11.0)
[2020-10-23 11:37] LABS: INR 0.9 (0.9-1.3); Prothrombin Time 10.8 SECONDS (10.1-12.7)
[2020-10-23 11:40] LABS: PTT Partial Thromboplastin Tim 31 SECONDS (26.4-36.2)
[2020-10-23 11:42] LABS: Alanine Aminotransferase 22 IU/L (<50); Albumin 4.5 g/dL (3.5-5.0); Albumin Globulin Ratio 1.2 (1.0-2.8); Alkaline Phosphatase 130 U/L (38-126); Aspartate Aminotransferase 58 IU/L (17-59); Bilirubin Total 1.2 mg/dL (0.2-1.3); Blood Urea Nitrogen 18 mg/dL (9-20); Calcium 9.6 mg/dL (8.4-10.2); Carbon Dioxide 25 mmol/L (22-32); Chloride 97 mmol/L (98-107); Creatine Kinase 158 U/L (55-170); Estimated Glomerular Filt Rate > 60.0 mL/min (>60); Ethanol (ETOH) < 10 mg/dL; Globulin 3.8 g/dL (1.7-4.1); Glucose 410 mg/dL (80-110); Potassium 5.3 mmol/L (3.4-5.1); Sodium 131 mmol/L (137-145); Total Protein 8.3 g/dL (6.3-8.2)
[2020-10-23 11:43] LABS: HEMOLYSIS 238 (0-50)
[2020-10-23 11:53] LABS: Troponin I 0.032 ng/mL (0.01-0.034)
[2020-10-23 11:57] LABS: CKMB % Relative Index 1.5 % (1.5-5.0); Creatine Kinase MB 2.32 ng/mL (<2.37)
[2020-10-23 11:59] VITALS: BP 212/95; PULSE 98; RESP 15; O2SAT 95
[2020-10-23 12:11] LABS: UR Morphine/Opiate cutoff 300 Negative (Negative); Ur Creatinine Normal (Normal); Ur Specific Gravity Normal (Normal); Urine Cocaine Negative (Negative); Urine Tetrahydrocannabinol Negative (Negative); Urine pH Normal (Normal)
[2020-10-23 12:12] LABS: Urine Amphetamines Positive (Negative); Urine Barbiturates Negative (Negative); Urine Benzodiazepines Negative (Negative); Urine MDMA Negative (Negative); Urine Methadone Negative (Negative); Urine Methamphetamines Positive (Negative); Urine Oxycodone Negative (Negative); Urine Phencyclidine Negative (Negative); Urine Tricyclic Antidepressant Negative (Negative)
--- NOTE | 2020-10-23 12:16 | PC.NURSE ---
I went in to do an NIH stroke scale and the patient reports that he needs a cigarette and haldol. Provider notified. 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
--- NOTE | 2020-10-23 12:23 | PC.NURSE ---
Provider made aware of the patient's comments about taking himself off the planet and she is assessing his mental status.
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
--- NOTE | 2020-10-23 12:55 | CM.SWNOTE ---
DUMPSTER OPERATOR Note This DUMPSTER OPERATOR requested for consult to assess needs of this 60 yo , presents via EMS w/complaints of SI/possible stroke (?) According to Dr Estelita Duenas, patient is an active and daily meth user, patient states he is tired of all the bullshit and tells ED staff that he has been trying to get [facility] cgs for 7 years. Patient is not a good historian and tells ED provider that If I go home, I'll jump outta the back of the cab!!. Upon this DUMPSTER OPERATOR's arrival to the ED, patient was belligerent, not threatening but cursing and yelling at staff. Patient appears to have paranoid delusions, cannot tell this DUMPSTER OPERATOR and Dr Duenas why EMS was called on his behalf and who called. Talks about the threat of COVID and other parasites [employer] standing by to assist as patient demanding to leave the ED and return home. Patient will not accept help w/removing his tele stickers or his catheter, patient will not accept help in arranging transportation home on his behalf. Re: eating and sleep- Patient says he is eating, like everyone else does and will not answer this DUMPSTER OPERATOR when asked if he felt safe returning home. Patient denies suicidal or homicidal intent. Patient left the ED w/ catheter still in , dressed, w/DC instructions in hand. TORO Khan
== END 2020-10-23 12:55 | disposition home or self-care (01) ==
PROVIDERS: Emergency Provider Emergency Medicine
DX: F19.10 Other psychoactive substance abuse, uncomplicated (principal); F15.10 Other stimulant abuse, uncomplicated; R33.8 Other retention of urine; R27.0 Ataxia, unspecified; R20.0 Anesthesia of skin; J43.9 Emphysema, unspecified; I10 Essential (primary) hypertension; F12.90 Cannabis use, unspecified, uncomplicated
CPT/HCPCS: 51701; 51798; 70450; 80053; 80305; 80320; 81003; 82550; 82553; 84484; 85025; 85610; 85730; 93005; 93010; 99283; 99284

== ENCOUNTER 2021-06-26 15:05 | Emergency (ER) | payer MEDICARE, MEDICAID, SELFPAY ==
[2018-03-20 02:37] VITALS: BMI 32.5
[2021-06-26] VITALS (18 sets, daily range): BP systolic 166–240; BP diastolic 97–118; PULSE 67–90; RESP 16–20; TEMP 36.9; O2SAT 94–99
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
--- NOTE | 2021-06-26 15:30 | PC.NURSE ---
pt remains uncooperative. will not wear a mask. refuses c collar.
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
[2021-06-26] MEDS: MORPHINE 2 MG/ML INJ IV (15:47)
[2021-06-26] MEDS: ONDANSETRON 4 MG/2 ML INJ IV (15:47)
[2021-06-26] MEDS: TET,DIPH,PERTUSS(ACELL),VAC/PF 0.5 ML SYRINGE IM (15:47)
[2021-06-26] MEDS: HYDROMORPHONE 1 MG INJ IV (16:37)
[2021-06-26 16:39] LABS: Add Manual Diff / Slide Review NO; Basophils Absolute Auto 100 /uL (0-100); Basophils Percent Auto 0.8 % (0-2); Eosinophils Absolute Auto 200 /uL (0-450); Eosinophils Percent Auto 1.6 % (2-4); Hematocrit 46.4 % (41-53); Hemoglobin 15.8 g/dL (13.5-17.5); Lymphocytes Absolute Auto 1300 /uL (1100-4500); Lymphocytes Percent Auto 13.4 % (25-40); Mean Corpuscular HGB Conc 34.2 % (30-36); Mean Corpuscular Hemoglobin 28.6 PG (26-34); Mean Corpuscular Volume 83.8 fL (80-100); Monocytes Absolute Auto 1000 /uL (0-900); Monocytes Percent Auto 10.2 % (3-14); Neutrophils Absolute Auto 7200 /uL (1500-7000); Platelet Count 213 X10^3/uL (150-400); Red Blood Cell Count 5.53 X10^6/uL (4.5-5.9); Red Cell Distribution Width 12.8 % (11.6-14.8); White Blood Cell Count 9.7 X10^3/uL (4.5-11.0)
[2021-06-26 16:42] LABS: Alanine Aminotransferase 21 IU/L (<50); Albumin 4.4 g/dL (3.5-5.0); Albumin Globulin Ratio 1.3 (1.0-2.8); Alkaline Phosphatase 121 U/L (38-126); Aspartate Aminotransferase 27 IU/L (17-59); BUN Creatinine Ratio 16.7 (6-22); Bilirubin Total 0.5 mg/dL (0.2-1.3); Blood Urea Nitrogen 17 mg/dL (9-20); Carbon Dioxide 31 mmol/L (22-32); Chloride 97 mmol/L (98-107); Creatine Kinase 170 U/L (55-170); Estimated Glomerular Filt Rate > 60.0 mL/min (>60); Globulin 3.3 g/dL (1.7-4.1); Glucose 333 mg/dL (80-110); HEMOLYSIS < 15 (0-50); Lipase 151 U/L (23-300); Potassium 3.7 mmol/L (3.4-5.1); Sodium 136 mmol/L (137-145); Total Protein 7.7 g/dL (6.3-8.2)
[2021-06-26 16:54] LABS: Troponin I 0.023 ng/mL (0.01-0.034)
[2021-06-26 16:57] LABS: CKMB % Relative Index 1.8 % (1.5-5.0); Creatine Kinase MB 3.13 ng/mL (<2.37)
[2021-06-26 17:12] LABS: COVID19 -Nasal RAPID POSITIVE (Negative)
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
--- NOTE | 2021-06-26 17:33 | PC.NURSE ---
assisted md to check eye pressure
[2021-06-26] MEDS: PROPARACAINE 0.5% OPHTH SOL 1 DROPS EYE-BOTH (17:35)
[2021-06-26] MEDS: LABETALOL 20 MG/4 ML SYRINGE IV (17:45)
--- NOTE | 2021-06-26 19:07 | PC.NURSE ---
critical care time end 06/26/2021 at 1840
== END 2021-06-26 20:45 | disposition home or self-care (01) ==
PROVIDERS: Emergency Provider Emergency Medicine
DX: S02.31XA Fracture of orbital floor, right side, initial encounter for closed fracture (principal); S02.40CA Maxillary fracture, right side, initial encounter for closed fracture; S02.2XXA Fracture of nasal bones, initial encounter for closed fracture; I10 Essential (primary) hypertension; U07.1 COVID-19; F17.210 Nicotine dependence, cigarettes, uncomplicated; Y00.XXXA Assault by blunt object, initial encounter; Z23 Encounter for immunization
CPT/HCPCS: 36415; 70450; 70486; 72125; 80053; 82550; 82553; 83690; 84484; 85025; 87635; 90471; 93005; 93010; 96374; 96375; 99284; 99285; C9803; 90715; J1170; J2270; J2405

== ENCOUNTER 2021-10-14 18:08 | Observation (INO) | payer MEDICARE, MEDICAID, SELFPAY ==
[2018-03-20 02:37] VITALS: BMI 32.5
[2021-10-14 18:13] VITALS: BP 210/112; PULSE 114; RESP 18; TEMP 36.7; O2SAT 98; BMI 27.3
--- NOTE | 2021-10-14 18:18 | PC.NURSE ---
pt notes he has been out of his hctz med for a month or so. states he's called his pcp but hasn't gotten an answer.
--- NOTE | 2021-10-14 18:20 | DI.RAD.S_ITS ---
PROCEDURE: XR FINGER LT MIN 2V INDICATIONS: swelling/redness/possible injury TECHNIQUE: AP hand, 2 views of the 1st finger(s) acquired. COMPARISON: None. FINDINGS: Bones: No fractures or dislocations. No suspicious bony lesions. Mild degeneration at the 1st IP joint. Soft tissues: No suspicious soft tissue calcifications. IMPRESSION: 1. No fractures or foreign bodies. 2. Mild degenerative change. Dictated by: Zulema Salguero M.D. on 10/14/2021 at 20:29 Approved by: Zulema Salguero M.D. on 10/14/2021 at 20:30
--- NOTE | 2021-10-14 18:55 | ED_ITS ---
HPI - Extremity Injury (Upper) <RODDY Urias - Last Filed: 10/21/21 12:11> General Chief Complaint: Extremity Injury, Upper Stated Complaint: Left hand infection/swelling x2 days Time Seen by Provider: 10/14/21 18:25 Source: patient Mode of arrival: Ambulatory History of Present Illness HPI narrative: 61-year-old male with history marijuana and methamphetamine use, history of COPD and COVID infection in June 2021 who presents to the emergency department complaining of left hand infection patient also states that he has been out of his hydrochlorothiazide medication for over a month. Related Data Previous Rx's Medication Instructions Recorded doxycycline hyclate 100 mg tablet 100 mg PO BID 14 Days #28 tab 10/16/21 hydrochlorothiazide 25 mg tablet 25 mg PO DAILY 30 Days #30 tab 10/16/21 Allergies Allergy/AdvReac Type Severity Reaction Status Date / Time cephalexin [From KEFLEX] Allergy Severe Rash Verified 06/26/21 15:32 codeine [CODEINE] Allergy Severe ANAPHYLACTIC Verified 06/26/21 15:32 SHOCK adhesive tape Allergy Unknown Verified 10/15/21 06:36 <Alyx Liao MD - Last Filed: 10/14/21 22:21> History of Present Illness HPI narrative: 61-year-old male with history marijuana and methamphetamine use, history of COPD and COVID infection in June 2021 who presents to the emergency department complaining of left hand infection patient also states that he has been out of his hydrochlorothiazide medication for over a month. He states that he had some minor trauma to his left thumb and is concerned that there may be glass under the nail bed. It is hurting and he wants the glass removed. He is complaining of pain up into the arm and into the axilla. He is significantly hypertensive and tachycardic consistent with active methamphetamine use and no prescribed hyd rochlorothiazide for the last month. Complains of intermittent fevers, no chills, no chest pain or palpitations. He has not been having vomiting or diarrhea. States that he generally feels unwell with body aches. <Alyx Liao MD - Last Filed: 10/14/21 22:21> Review of Systems Narrative: Remainder of complete review of systems is otherwise unremarkable except for that included in the HPI. Patient History <RODDY Urias - Last Filed: 10/21/21 12:11> Medical History (Updated 10/15/21 @ 00:57 by CAMILO White) Hepatitis C Hypertension Marijuana use Methamphetamine abuse Tobacco abuse Surgical History History of carpal tunnel surgery of right wrist History of right knee surgery Family History Mother Heart disease Father Cancer Social History household members: none Smoking Status: Current every day smoker alcohol intake: former Smoking Status: Current every day smoker tobacco type: cigarettes alcohol intake frequency: 0-2 drinks per day Substance Use Type: marijuana and methamphetamine Exam <RODDY Urias - Last Filed: 10/21/21 12:11> Initial Vital Signs Initial Vital Signs: Vital Signs Temperature 98.1 F 10/14/21 18:13 Pulse Rate 114 H 10/14/21 18:13 Respiratory Rate 18 10/14/21 18:13 Blood Pressure 210/112 H 10/14/21 18:13 Pulse Oximetry 98 10/14/21 18:13 <Alyx Liao MD - Last Filed: 10/14/21 22:21> Initial Vital Signs Initial Vital Signs: Vital Signs Temperature 98.1 F 10/14/21 18:13 Pulse Rate 114 H 10/14/21 18:13 Respiratory Rate 18 10/14/21 18:13 Blood Pressure 210/112 H 10/14/21 18:13 Pulse Oximetry 98 10/14/21 18:13 General: Chronically ill-appearing in obvious pain. Disheveled but Able to give a complete and coherent history. HEENT: Moist mucous membranes, normal sclera with reactive pupils, Neck: No JVD, supple Respiratory: Lungs with minor scattered wheeze in both lung winn without rhonchi or rales. Full and symmetrical air movement Cardiac: Mild tachycardia with 3/6 systolic ejection murmur. Abdomen: Soft, nontender, good bowel tones, no flank pain Skin: Warm and dry, has track kapadia and multiple bruises in various stages of healing Neurologic: Grossly neurologically intact with no obvious asymmetries or abnormalities Extremities: Clubbing of fingernails there is an ecchymotic area at the base of the left nailbed. The entire left thumb is warm, swollen tender with decreased region of motion because of the edema. He has lymphangitic streaking from that up to the distal area of his humerus. He has axillary adenopathy on that side. Psych: Slightly pressured but fluent speech pattern, somewhat cantankerous but willing to cooperate. <Alyx Liao MD - Last Filed: 10/14/21 22:21> [facility] [place] Procedure Name of Procedure: Left thumbnail removal Indication:felon of thumb, subungual hematoma and abscess with cellulitis and l ymphangitic spread Location: Left thumb Technique/Description of procedure performed: Digital block of the thumb is performed with 1% lidocaine buffered with bicarb. Total of 10 cc is used. Moderate anesthesia obtained Additional lidocaine is applied subungual and at the base of the nail bed, an additional 5 cc. Pain control is still poor Scissors were used to loosen the nail from the nail bed and blunt force pulling is used to remove the remainder of the nail. There is no Injury to the nail bed. Culture was obtained of the purulent fluid underneath the nail A dressing was placed He remains neurovascularly intact post procedure Course <RODDY Urias - Last Filed: 10/21/21 12:11> Orders Ordered: Discontinued Medications Acetaminophen (Acetaminophen 325 Mg Tablet) 650 mg PO Q6HR PRN PRN Reason: Fever/Mild Pain (1-3) Acetaminophen (Acetaminophen 325 Mg Tablet) 975 mg PO NOW ONE Stop: 10/15/21 01:29 Last Admin: 10/15/21 02:03 Dose: Not Given Documented by: ADELA Bacitracin (Bacitracin Oint 0.9 Gm Pckt) 1 applic TOP NOW ONE Stop: 10/14/21 22:06 Last Admin: 10/14/21 22:14 Dose: 1 applic Documented by: LISHA Cefdinir (Cefdinir 300 Mg Capsule) 300 mg PO BID [facility] Stop: 10/20/21 20:59 Last Admin: 10/15/21 21:00 Dose: 300 mg Documented by: CHANEL Dextrose (Dextrose 50 % In Water 25 Gm/50 Ml Syringe) 25 gm IV PRN PRN PRN Reason: Hypoglycemia Doxycycline Hyclate (Doxycycline Hyclate 100 Mg Tablet) 100 mg PO BID [facility] Stop: 10/29/21 20:59 Last Admin: 10/16/21 09:17 Dose: 100 mg Documented by: Admin: 10/15/21 21:00 Dose: 100 mg Documented by: CHANEL Enoxaparin Sodium (Enoxaparin 40 Mg/0.4 Ml Syringe) 40 mg SUBCUT DAILY [facility] Last Admin: 10/16/21 09:16 Dose: Not Given Documented by: Admin: 10/15/21 08:08 Dose: Not Given Documented by: ABBE Hydrochlorothiazide (Hydrochlorothiazide 25 Mg Tablet) 25 mg PO DAILY [facility] Last Admin: 10/16/21 09:17 Dose: 25 mg Documented by: Admin: 10/15/21 13:44 Dose: 25 mg Documented by: CORNELL Hydromorphone HCl (Hydromorphone 0.5 Mg Inj) 0.5 mg IV Q6H PRN PRN Reason: Pain, Moderate (4-6) Hydromorphone HCl (Hydromorphone 0.5 Mg Inj) 0.25 mg IV Q6H PRN PRN Reason: Pain, Moderate (4-6) Last Admin: 10/15/21 09:56 Dose: 0.25 mg Documented by: ABBE Ceftriaxone Sodium 2,000 mg/ (Sodium Chloride) 100 mls @ 200 mls/hr IV NOW ONE Stop: 10/14/21 19:33 Last Infusion: 10/14/21 21:00 Dose: 0 mls/hr Documented by: Admin: 10/14/21 20:13 Dose: 200 mls/hr Documented by: LISHA Vancomycin HCl/Dextrose (Vancomycin) 2,000 mg in 400 mls @ 266.667 mls/hr IV NOW ONE Stop: 10/14/21 23:14 Last Infusion: 10/14/21 23:35 Dose: 0 mls/hr Documented by: Infusion: 10/14/21 23:03 Dose: 266.667 mls/hr Documented by: Admin: 10/14/21 21:38 Dose: 266.667 mls/hr Documented by: LISHA Vancomycin HCl (Vancomycin) 1,000 mg in 200 mls @ 200 mls/hr IV Q8H [facility] Last Infusion: 10/15/21 14:59 Dose: 0 mls/hr Documented by: Admin: 10/15/21 13:27 Dose: 150 mls/hr Documented by: Infusion: 10/15/21 06:57 Dose: 0 mls/hr Documented by: Admin: 10/15/21 05:51 Dose: 200 mls/hr Documented by: ADELA Sodium Chloride (Normal Saline 0.9%) 1,000 mls @ 100 mls/hr IV CONT [facility] Last Admin: 10/15/21 11:56 Dose: 100 mls/hr Documented by: Infusion: 10/15/21 09:34 Dose: 100 mls/hr Documented by: Admin: 10/14/21 23:34 Dose: 100 mls/hr Documented by: ADELA Ceftriaxone Sodium 1,000 mg/ (Sodium Chloride) 100 mls @ 200 mls/hr IV Q24H [facility] Last Infusion: 10/15/21 09:50 Dose: 0 mls/hr Documented by: Admin: 10/15/21 08:15 Dose: 150 mls/hr Documented by: CORNELL Insulin Glargine (Insulin Glargine 100 Unit/Ml 3ml Pen) 20 unit SUBCUT BEDTIME [facility] Last Admin: 10/15/21 21:00 Dose: Not Given Documented by: Admin: 10/15/21 01:21 Dose: Not Given Documented by: ADLEA Insulin Human Lispro (Insulin Lispro 100 Unit/Ml 3ml Vial) 0 unit SUBCUT ACHS [facility]; Protocol Last Admin: 10/16/21 09:13 Dose: Not Given Documented by: Admin: 10/15/21 21:01 Dose: Not Given Documented by: Admin: 10/15/21 16:58 Dose: Not Given Documented by: Admin: 10/15/21 12:50 Dose: Not Given Documented by: Admin: 10/15/21 05:53 Dose: Not Given Documented by: ADELA Labetalol HCl (Labetalol 20 Mg/4 Ml Syringe) 10 mg IV Q4HR PRN PRN Reason: Hypertension Last Admin: 10/15/21 01:07 Dose: 10 mg Documented by: ADELA Lidocaine/Sodium Bicarbonate (Lido 1%/Sod Bicarb 8.4% (10ml) 10 Ml Syringe) 10 ml INJ NOW ONE Stop: 10/14/21 19:29 Last Admin: 10/14/21 20:17 Dose: 10 ml Documented by: LISHA Lisinopril (Lisinopril 20 Mg Tablet) 40 mg PO DAILY [facility] Last Admin: 10/16/21 09:16 Dose: Not Given Documented by: Admin: 10/15/21 08:09 Dose: Not Given Documented by: ABBE Naloxone HCl (Naloxone 0.4 Mg/Ml Vial) 0.2 mg IV Q2MIN PRN PRN Reason: Opiate Reversal Ondansetron HCl (Ondansetron 4 Mg/2 Ml Inj) 4 mg IV NOW ONE Stop: 10/14/21 19:25 Last Admin: 10/14/21 20:14 Dose: 4 mg Documented by: LISHA Ondansetron HCl (Ondansetron 4 Mg/2 Ml Inj) 4 mg IV Q8HR PRN PRN Reason: Nausea And Vomiting Oxycodone/Acetaminophen (Oxycodone/Acetaminophen 5/325 Tablet) 2 tab PO NOW ONE Stop: 10/14/21 19:22 Last Admin: 10/14/21 19:25 Dose: 2 tab Documented by: LISHA Oxycodone/Acetaminophen (Oxycodone/Acetaminophen 5/325 Tablet) 2 tab PO NOW ONE Stop: 10/14/21 19:25 Last Admin: 10/14/21 19:51 Dose: Not Given Documented by: LISHA Vancomycin HCl (Vancomycin Per Pharmacy) 1 request MISC NOW ONE Stop: 10/14/21 19:33 Last Admin: 10/14/21 21:38 Dose: Not Given Documented by: LISHA Vancomycin HCl (Vancomycin Per Pharmacy) 1 request MISC NOW ONE Stop: 10/14/21 21:31 Last Admin: 10/14/21 21:39 Dose: 1 request Documented by: LISHA Vancomycin HCl (Vancomycin Per Pharmacy) 1 request MISC NOW ONE Stop: 10/14/21 22:59 Last Admin: 10/15/21 08:05 Dose: Not Given Documented by: ABBE Vancomycin HCl (Vancomycin Trough) 1 request MIS 05 ONE Stop: 10/16/21 05:31 Vital Signs Vital signs: Vital Signs - 8 hr 10/14/21 18:13 Temperature 98.1 F Pulse Rate 114 H Respiratory Rate 18 Blood Pressure 210/112 H Pulse Oximetry 98 <Alyx Liao MD - Last Filed: 10/14/21 22:21> Orders Ordered: Discontinued Medications Acetaminophen (Acetaminophen 325 Mg Tablet) 650 mg PO Q6HR PRN PRN Reason: Fever/Mild Pain (1-3) Acetaminophen (Acetaminophen 325 Mg Tablet) 975 mg PO NOW ONE Stop: 10/15/21 01:29 Last Admin: 10/15/21 02:03 Dose: Not Given Documented by: ADELA Bacitracin (Bacitracin Oint 0.9 Gm Pckt) 1 applic TOP NOW ONE Stop: 10/14/21 22:06 Last Admin: 10/14/21 22:14 Dose: 1 applic Documented by: LISHA Cefdinir (Cefdinir 300 Mg Capsule) 300 mg PO BID [facility] Stop: 10/20/21 20:59 Last Admin: 10/15/21 21:00 Dose: 300 mg Documented by: CHANEL Dextrose (Dextrose 50 % In Water 25 Gm/50 Ml Syringe) 25 gm IV PRN PRN PRN Reason: Hypoglycemia Doxycycline Hyclate (Doxycycline Hyclate 100 Mg Tablet) 100 mg PO BID [facility] Stop: 10/29/21 20:59 Last Admin: 10/16/21 09:17 Dose: 100 mg Documented by: Admin: 10/15/21 21:00 Dose: 100 mg Documented by: CHANEL Enoxaparin Sodium (Enoxaparin 40 Mg/0.4 Ml Syringe) 40 mg SUBCUT DAILY [facility] Last Admin: 10/16/21 09:16 Dose: Not Given Documented by: Admin: 10/15/21 08:08 Dose: Not Given Documented by: ABBE Hydrochlorothiazide (Hydrochlorothiazide 25 Mg Tablet) 25 mg PO DAILY [facility] Last Admin: 10/16/21 09:17 Dose: 25 mg Documented by: Admin: 10/15/21 13:44 Dose: 25 mg Documented by: CORNELL Hydromorphone HCl (Hydromorphone 0.5 Mg Inj) 0.5 mg IV Q6H PRN PRN Reason: Pain, Moderate (4-6) Hydromorphone HCl (Hydromorphone 0.5 Mg Inj) 0.25 mg IV Q6H PRN PRN Reason: Pain, Moderate (4-6) Last Admin: 10/15/21 09:56 Dose: 0.25 mg Documented by: ABBE Ceftriaxone Sodium 2,000 mg/ (Sodium Chloride) 100 mls @ 200 mls/hr IV NOW ONE Stop: 10/14/21 19:33 Last Infusion: 10/14/21 21:00 Dose: 0 mls/hr Documented by: Admin: 10/14/21 20:13 Dose: 200 mls/hr Documented by: LISHA Vancomycin HCl/Dextrose (Vancomycin) 2,000 mg in 400 mls @ 266.667 mls/hr IV NOW ONE Stop: 10/14/21 23:14 Last Infusion: 10/14/21 23:35 Dose: 0 mls/hr Documented by: Infusion: 10/14/21 23:03 Dose: 266.667 mls/hr Documented by: Admin: 10/14/21 21:38 Dose: 266.667 mls/hr Documented by: LISHA Vancomycin HCl (Vancomycin) 1,000 mg in 200 mls @ 200 mls/hr IV Q8H [facility] Last Infusion: 10/15/21 14:59 Dose: 0 mls/hr Documented by: Admin: 10/15/21 13:27 Dose: 150 mls/hr Documented by: Infusion: 10/15/21 06:57 Dose: 0 mls/hr Documented by: Admin: 10/15/21 05:51 Dose: 200 mls/hr Documented by: ADELA Sodium Chloride (Normal Saline 0.9%) 1,000 mls @ 100 mls/hr IV CONT [facility] Last Admin: 10/15/21 11:56 Dose: 100 mls/hr Documented by: Infusion: 10/15/21 09:34 Dose: 100 mls/hr Documented by: Admin: 10/14/21 23:34 Dose: 100 mls/hr Documented by: ADELA Ceftriaxone Sodium 1,000 mg/ (Sodium Chloride) 100 mls @ 200 mls/hr IV Q24H [facility] Last Infusion: 10/15/21 09:50 Dose: 0 mls/hr Documented by: Admin: 10/15/21 08:15 Dose: 150 mls/hr Documented by: CORNELL Insulin Glargine (Insulin Glargine 100 Unit/Ml 3ml Pen) 20 unit SUBCUT BEDTIME [facility] Last Admin: 10/15/21 21:00 Dose: Not Given Documented by: Admin: 10/15/21 01:21 Dose: Not Given Documented by: ADELA Insulin Human Lispro (Insulin Lispro 100 Unit/Ml 3ml Vial) 0 unit SUBCUT ACHS [facility]; Protocol Last Admin: 10/16/21 09:13 Dose: Not Given Documented by: Admin: 10/15/21 21:01 Dose: Not Given Documented by: Admin: 10/15/21 16:58 Dose: Not Given Documented by: Admin: 10/15/21 12:50 Dose: Not Given Documented by: Admin: 10/15/21 05:53 Dose: Not Given Documented by: ADELA Labetalol HCl (Labetalol 20 Mg/4 Ml Syringe) 10 mg IV Q4HR PRN PRN Reason: Hypertension Last Admin: 10/15/21 01:07 Dose: 10 mg Documented by: ADELA Lidocaine/Sodium Bicarbonate (Lido 1%/Sod Bicarb 8.4% (10ml) 10 Ml Syringe) 10 ml INJ NOW ONE Stop: 10/14/21 19:29 Last Admin: 10/14/21 20:17 Dose: 10 ml Documented by: LISHA Lisinopril (Lisinopril 20 Mg Tablet) 40 mg PO DAILY [facility] Last Admin: 10/16/21 09:16 Dose: Not Given Documented by: Admin: 10/15/21 08:09 Dose: Not Given Documented by: ABBE Naloxone HCl (Naloxone 0.4 Mg/Ml Vial) 0.2 mg IV Q2MIN PRN PRN Reason: Opiate Reversal Ondansetron HCl (Ondansetron 4 Mg/2 Ml Inj) 4 mg IV NOW ONE Stop: 10/14/21 19:25 Last Admin: 10/14/21 20:14 Dose: 4 mg Documented by: LISHA Ondansetron HCl (Ondansetron 4 Mg/2 Ml Inj) 4 mg IV Q8HR PRN PRN Reason: Nausea And Vomiting Oxycodone/Acetaminophen (Oxycodone/Acetaminophen 5/325 Tablet) 2 tab PO NOW ONE Stop: 10/14/21 19:22 Last Admin: 10/14/21 19:25 Dose: 2 tab Documented by: LISHA Oxycodone/Acetaminophen (Oxycodone/Acetaminophen 5/325 Tablet) 2 tab PO NOW ONE Stop: 10/14/21 19:25 Last Admin: 10/14/21 19:51 Dose: Not Given Documented by: LISHA Vancomycin HCl (Vancomycin Per Pharmacy) 1 request MISC NOW ONE Stop: 10/14/21 19:33 Last Admin: 10/14/21 21:38 Dose: Not Given Documented by: LISHA Vancomycin HCl (Vancomycin Per Pharmacy) 1 request MISC NOW ONE Stop: 10/14/21 21:31 Last Admin: 10/14/21 21:39 Dose: 1 request Documented by: LISHA Vancomycin HCl (Vancomycin Per Pharmacy) 1 request MISC NOW ONE Stop: 10/14/21 22:59 Last Admin: 10/15/21 08:05 Dose: Not Given Documented by: ABBE Vancomycin HCl (Vancomycin Trough) 1 request MISC 0530 ONE Stop: 10/16/21 05:31 Vital Signs Vital signs: Vital Signs - 8 hr 10/14/21 18:13 Temperature 98.1 F Pulse Rate 114 H Respiratory Rate 18 Blood Pressure 210/112 H Pulse Oximetry 98 MDM - Extremity Injury (Upper) <RODDY Urias - Last Filed: 10/21/21 12:11> Lab Data Result diagrams: 10/15/21 05:45 10/15/21 05:45 Labs: Lab Results 10/14/21 10/14/21 10/14/21 Range/Units 19:49 20:05 20:05 WBC 17.4 H (4.5-11.0) X10^3/uL RBC 5.15 (4.5-5.9) X10^6/uL Hgb 14.8 (13.5-17.5) g/dL Hct 43.7 (41-53) % MCV 84.9 (80-100) fL MCH 28.8 (26-34) PG MCHC 34.0 (30-36) % RDW 13.1 (11.6-14.8) % Plt Count 182 (150-400) X10^3/uL Neut % (Auto) 84.8 H (50-75) % Lymph % (Auto) 6.4 L (25-40) % Edmunds % (Auto) 7.9 (3-14) % Eos % (Auto) 0.4 L (2-4) % Baso % (Auto) 0.5 (0-2) % Neut # (Auto) 36413 H (5432-6996) /uL Lymph # (Auto) 1100 (5590-1793) /uL Edmunds # (Auto) 1400 H (0-900) /uL Eos # (Auto) 100 (0-450) /uL Baso # (Auto) 100 (0-100) /uL ESR 9 (0-15) MM/HR Sodium 130 L (137-145) mmol/L Potassium 3.8 (3.4-5.1) mmol/L Chloride 97 L (98-107) mmol/L Carbon Dioxide 27 (22-32) mmol/L BUN 15 (9-20) mg/dL Creatinine 0.65 L (0.66-1.25) mg/dL Estimated GFR > 60.0 (>60) mL/min BUN/Creatinine Ratio 23.1 H (6-22) Glucose 353 H (80-110) mg/dL Hemoglobin A1c (4.0-6.0) % Lactate (0.7-2.1) mmol/L Calcium 9.9 (8.4-10.2) mg/dL Magnesium (1.6-2.3) mg/dL Total Bilirubin 0.8 (0.2-1.3) mg/dL AST 20 (17-59) IU/L ALT 18 (<50) IU/L Alkaline Phosphatase 115 (38-126) U/L C-Reactive Protein 2.7 H (<1.0) mg/dL NT-Pro-B Natriuret Pep (<125) pg/mL Total Protein 7.6 (6.3-8.2) g/dL Albumin 4.4 (3.5-5.0) g/dL Globulin 3.2 (1.7-4.1) g/dL Albumin/Globulin Ratio 1.4 (1.0-2.8) Procalcitonin (<0.5) ng/mL SARS-CoV-2 (PCR) Negative (Negative) 10/14/21 10/14/21 10/14/21 Range/Units 20:05 20:05 20:05 WBC (4.5-11.0) X10^3/uL RBC (4.5-5.9) X10^6/uL Hgb (13.5-17.5) g/dL Hct (41-53) % MCV (80-100) fL MCH (26-34) PG MCHC (30-36) % RDW (11.6-14.8) % Plt Count (150-400) X10^3/uL Neut % (Auto) (50-75) % Lymph % (Auto) (25-40) % Edmunds % (Auto) (3-14) % Eos % (Auto) (2-4) % Baso % (Auto) (0-2) % Neut # (Auto) (1288-8458) /uL Lymph # (Auto) (0359-0139) /uL Edmunds # (Auto) (0-900) /uL Eos # (Auto) (0-450) /uL Baso # (Auto) (0-100) /uL ESR (0-15) MM/HR Sodium (137-145) mmol/L Potassium (3.4-5.1) mmol/L Chloride (98-107) mmol/L Carbon Dioxide (22-32) mmol/L BUN (9-20) mg/dL Creatinine (0.66-1.25) mg/dL Estimated GFR (>60) mL/min BUN/Creatinine Ratio (6-22) Glucose (80-110) mg/dL Hemoglobin A1c (4.0-6.0) % Lactate 0.9 (0.7-2.1) mmol/L Calcium (8.4-10.2) mg/dL Magnesium 1.6 (1.6-2.3) mg/dL Total Bilirubin (0.2-1.3) mg/dL AST (17-59) IU/L ALT (<50) IU/L Alkaline Phosphatase (38-126) U/L C-Reactive Protein (<1.0) mg/dL NT-Pro-B Natriuret Pep 367 H (<125) pg/mL Total Protein (6.3-8.2) g/dL Albumin (3.5-5.0) g/dL Globulin (1.7-4.1) g/dL Albumin/Globulin Ratio (1.0-2.8) Procalcitonin 0.11 (<0.5) ng/mL SARS-CoV-2 (PCR) (Negative) 10/14/21 Range/Units 20:05 WBC (4.5-11.0) X10^3/uL RBC (4.5-5.9) X10^6/uL Hgb (13.5-17.5) g/dL Hct (41-53) % MCV (80-100) fL MCH (26-34) PG MCHC (30-36) % RDW (11.6-14.8) % Plt Count (150-400) X10^3/uL Neut % (Auto) (50-75) % Lymph % (Auto) (25-40) % Edmunds % (Auto) (3-14) % Eos % (Auto) (2-4) % Baso % (Auto) (0-2) % Neut # (Auto) (9804-0202) /uL Lymph # (Auto) (4452-0906) /uL Edmunds # (Auto) (0-900) /uL Eos # (Auto) (0-450) /uL Baso # (Auto) (0-100) /uL ESR (0-15) MM/HR Sodium (137-145) mmol/L Potassium (3.4-5.1) mmol/L Chloride (98-107) mmol/L Carbon Dioxide (22-32) mmol/L BUN (9-20) mg/dL Creatinine (0.66-1.25) mg/dL Estimated GFR (>60) mL/min BUN/Creatinine Ratio (6-22) Glucose (80-110) mg/dL Hemoglobin A1c > 14.0 H (4.0-6.0) % Lactate (0.7-2.1) mmol/L Calcium (8.4-10.2) mg/dL Magnesium (1.6-2.3) mg/dL Total Bilirubin (0.2-1.3) mg/dL AST (17-59) IU/L ALT (<50) IU/L Alkaline Phosphatase (38-126) U/L C-Reactive Protein (<1.0) mg/dL NT-Pro-B Natriuret Pep (<125) pg/mL Total Protein (6.3-8.2) g/dL Albumin (3.5-5.0) g/dL Globulin (1.7-4.1) g/dL Albumin/Globulin Ratio (1.0-2.8) Procalcitonin (<0.5) ng/mL SARS-CoV-2 (PCR) (Negative) <Alyx Liao MD - Last Filed: 10/14/21 22:21> Medical Records Medical records narrative: 61-year-old gentleman with history of methamphetamine use presents with left thumb infection, at least a pulp space infection(felon) with concerns for osteomyelitis. He has cellulitis of the thumb with lymphangitic spread up the forearm to the antecubital fossa. White count is elevated, as is C reactive protein and procalcitonin. He is immunocompromised secondary to his baseline drug use history and continued methamphetamine use. I am concerned that this infection will significantly worsen without appropriate treatment. The nail itself was removed in attempt to allow better drainage and antibiotics in the form of ceftriaxone and vancomycin are initiated. He agrees to stay in the hospital for continued antibiotic treatment. Currently he is not showing signs of sepsis and his finger x-ray does not suggest obvious osteomyelitis. Lab Data Labs: Lab Results 10/14/21 10/14/21 10/14/21 Range/Units 19:49 20:05 20:05 WBC 17.4 H (4.5-11.0) X10^3/uL RBC 5.15 (4.5-5.9) X10^6/uL Hgb 14.8 (13.5-17.5) g/dL Hct 43.7 (41-53) % MCV 84.9 (80-100) fL MCH 28.8 (26-34) PG MCHC 34.0 (30-36) % RDW 13.1 (11.6-14.8) % Plt Count 182 (150-400) X10^3/uL Neut % (Auto) 84.8 H (50-75) % Lymph % (Auto) 6.4 L (25-40) % Edmunds % (Auto) 7.9 (3-14) % Eos % (Auto) 0.4 L (2-4) % Baso % (Auto) 0.5 (0-2) % Neut # (Auto) 28231 H (5087-2239) /uL Lymph # (Auto) 1100 (6421-6105) /uL Edmunds # (Auto) 1400 H (0-900) /uL Eos # (Auto) 100 (0-450) /uL Baso # (Auto) 100 (0-100) /uL ESR 9 (0-15) MM/HR Sodium 130 L (137-145) mmol/L Potassium 3.8 (3.4-5.1) mmol/L Chloride 97 L (98-107) mmol/L Carbon Dioxide 27 (22-32) mmol/L BUN 15 (9-20) mg/dL Creatinine 0.65 L (0.66-1.25) mg/dL Estimated GFR > 60.0 (>60) mL/min BUN/Creatinine Ratio 23.1 H (6-22) Glucose 353 H (80-110) mg/dL Hemoglobin A1c (4.0-6.0) % Lactate (0.7-2.1) mmol/L Calcium 9.9 (8.4-10.2) mg/dL Magnesium (1.6-2.3) mg/dL Total Bilirubin 0.8 (0.2-1.3) mg/dL AST 20 (17-59) IU/L ALT 18 (<50) IU/L Alkaline Phosphatase 115 (38-126) U/L C-Reactive Protein 2.7 H (<1.0) mg/dL NT-Pro-B Natriuret Pep (<125) pg/mL Total Protein 7.6 (6.3-8.2) g/dL Albumin 4.4 (3.5-5.0) g/dL Globulin 3.2 (1.7-4.1) g/dL Albumin/Globulin Ratio 1.4 (1.0-2.8) Procalcitonin (<0.5) ng/mL SARS-CoV-2 (PCR) Negative (Negative) 10/14/21 10/14/21 10/14/21 Range/Units 20:05 20:05 20:05 WBC (4.5-11.0) X10^3/uL RBC (4.5-5.9) X10^6/uL Hgb (13.5-17.5) g/dL Hct (41-53) % MCV (80-100) fL MCH (26-34) PG MCHC (30-36) % RDW (11.6-14.8) % Plt Count (150-400) X10^3/uL Neut % (Auto) (50-75) % Lymph % (Auto) (25-40) % Edmunds % (Auto) (3-14) % Eos % (Auto) (2-4) % Baso % (Auto) (0-2) % Neut # (Auto) (1275-1049) /uL Lymph # (Auto) (7297-9331) /uL Edmunds # (Auto) (0-900) /uL Eos # (Auto) (0-450) /uL Baso # (Auto) (0-100) /uL ESR (0-15) MM/HR Sodium (137-145) mmol/L Potassium (3.4-5.1) mmol/L Chloride (98-107) mmol/L Carbon Dioxide (22-32) mmol/L BUN (9-20) mg/dL Creatinine (0.66-1.25) mg/dL Estimated GFR (>60) mL/min BUN/Creatinine Ratio (6-22) Glucose (80-110) mg/dL Hemoglobin A1c (4.0-6.0) % Lactate 0.9 (0.7-2.1) mmol/L Calcium (8.4-10.2) mg/dL Magnesium 1.6 (1.6-2.3) mg/dL Total Bilirubin (0.2-1.3) mg/dL AST (17-59) IU/L ALT (<50) IU/L Alkaline Phosphatase (38-126) U/L C-Reactive Protein (<1.0) mg/dL NT-Pro-B Natriuret Pep 367 H (<125) pg/mL Total Protein (6.3-8.2) g/dL Albumin (3.5-5.0) g/dL Globulin (1.7-4.1) g/dL Albumin/Globulin Ratio (1.0-2.8) Procalcitonin 0.11 (<0.5) ng/mL SARS-CoV-2 (PCR) (Negative) 10/14/21 Range/Units 20:05 WBC (4.5-11.0) X10^3/uL RBC (4.5-5.9) X10^6/uL Hgb (13.5-17.5) g/dL Hct (41-53) % MCV (80-100) fL MCH (26-34) PG MCHC (30-36) % RDW (11.6-14.8) % Plt Count (150-400) X10^3/uL Neut % (Auto) (50-75) % Lymph % (Auto) (25-40) % Edmunds % (Auto) (3-14) % Eos % (Auto) (2-4) % Baso % (Auto) (0-2) % Neut # (Auto) (0462-2123) /uL Lymph # (Auto) (8137-3459) /uL [place] # (Auto) (0-900) /uL Eos # (Auto) (0-450) /uL Baso # (Auto) (0-100) /uL ESR (0-15) MM/HR Sodium (137-145) mmol/L Potassium (3.4-5.1) mmol/L Chloride (98-107) mmol/L Carbon Dioxide (22-32) mmol/L BUN (9-20) mg/dL Creatinine (0.66-1.25) mg/dL Estimated GFR (>60) mL/min BUN/Creatinine Ratio (6-22) Glucose (80-110) mg/dL Hemoglobin A1c > 14.0 H (4.0-6.0) % Lactate (0.7-2.1) mmol/L Calcium (8.4-10.2) mg/dL Magnesium (1.6-2.3) mg/dL Total Bilirubin (0.2-1.3) mg/dL AST (17-59) IU/L ALT (<50) IU/L Alkaline Phosphatase (38-126) U/L C-Reactive Protein (<1.0) mg/dL NT-Pro-B Natriuret Pep (<125) pg/mL Total Protein (6.3-8.2) g/dL Albumin (3.5-5.0) g/dL Globulin (1.7-4.1) g/dL Albumin/Globulin Ratio (1.0-2.8) Procalcitonin (<0.5) ng/mL SARS-CoV-2 (PCR) (Negative) Imaging Data XR finger: Radiologist's Impression: FINDINGS:? ? Bones:? No fractures or dislocations.? No suspicious bony lesions.? Mild degeneration at the 1st IP joint. ? Soft tissues:? No suspicious soft tissue calcifications.? ? IMPRESSION:? ? 1. No fractures or foreign bodies. ? 2. Mild degenerative change. ? ? Dictated by: Zulema Salguero M.D. on 10/14/2021 at 20:29? ?? MDM Narrative Medical decision making narrative: 61-year-old gentleman with history of methamphetamine use presents with left thumb infection, at least a pulp space infection(felon) with concerns for osteomyelitis.? He has cellulitis of the thumb with lymphangitic spread up the forearm to the antecubital fossa.? White count is elevated, as is C reactive protein and procalcitonin.? He is immunocompromised secondary to his baseline drug use history and continued methamphetamine use.? I am concerned that this infection will significantly worsen without appropriate treatment.? The nail itself was removed in attempt to allow better drainage and antibiotics in the form of ceftriaxone and vancomycin are initiated.? He agrees to stay in the hospital for continued antibiotic treatment.? Currently he is not showing signs of sepsis and his finger x-ray does not suggest obvious osteomyelitis. Blood pressures been elevated through is emergency room today. He notes he did use methamphetamine just prior to arrival and was in pain. He is not having systemic symptoms of hypertensive crisis so we will simply monitor blood pressure for the time being. Discharge Plan Departure Patient Disposition: Admitted as Observation Clinical Impression: Felon of finger of left hand with lymphangitis, Hypertension, Methamphetamine use Admit Date/Time: 10/14/21 22:22 Admit Provider: Janet Montenegro
[2021-10-14] MEDS: OXYCODONE/ACETAMINOPHEN 5/325 TABLET 2 TAB PO (19:25)
[2021-10-14] MEDS: cefTRIAXone 2,000 MG in SODIUM CHLORIDE 0.9% 100 ML 200 ML IV (20:13)
[2021-10-14] MEDS: ONDANSETRON 4 MG/2 ML INJ IV (20:14)
[2021-10-14] MEDS: LIDO 1%/SOD BICARB 8.4% (10ML) 10 ML SYRINGE INJ (20:17)
[2021-10-14 20:22] LABS: COVID19 -Nasal RAPID Negative (Negative)
[2021-10-14 20:31] LABS: Lactate (Lactic Acid) 0.9 mmol/L (0.7-2.1); Magnesium 1.6 mg/dL (1.6-2.3)
[2021-10-14 20:32] LABS: Alanine Aminotransferase 18 IU/L (<50); Albumin 4.4 g/dL (3.5-5.0); Albumin Globulin Ratio 1.4 (1.0-2.8); Alkaline Phosphatase 115 U/L (38-126); Aspartate Aminotransferase 20 IU/L (17-59); BUN Creatinine Ratio 23.1 (6-22); Bilirubin Total 0.8 mg/dL (0.2-1.3); Blood Urea Nitrogen 15 mg/dL (9-20); Calcium 9.9 mg/dL (8.4-10.2); Carbon Dioxide 27 mmol/L (22-32); Chloride 97 mmol/L (98-107); Estimated Glomerular Filt Rate > 60.0 mL/min (>60); Globulin 3.2 g/dL (1.7-4.1); Glucose 353 mg/dL (80-110); HEMOLYSIS < 15 (0-50); Potassium 3.8 mmol/L (3.4-5.1); Sodium 130 mmol/L (137-145); Total Protein 7.6 g/dL (6.3-8.2)
[2021-10-14 20:43] LABS: C-Reactive Protein Quant 2.7 mg/dL (<1.0)
[2021-10-14 20:48] LABS: Procalcitonin 0.11 ng/mL (<0.5)
[2021-10-14 21:05] LABS: Add Manual Diff / Slide Review NO; Basophils Absolute Auto 100 /uL (0-100); Basophils Percent Auto 0.5 % (0-2); Eosinophils Absolute Auto 100 /uL (0-450); Eosinophils Percent Auto 0.4 % (2-4); Hematocrit 43.7 % (41-53); Hemoglobin 14.8 g/dL (13.5-17.5); Lymphocytes Absolute Auto 1100 /uL (1100-4500); Lymphocytes Percent Auto 6.4 % (25-40); Mean Corpuscular Hemoglobin 28.8 PG (26-34); Mean Corpuscular Volume 84.9 fL (80-100); Monocytes Absolute Auto 1400 /uL (0-900); Monocytes Percent Auto 7.9 % (3-14); Neutrophils Absolute Auto 14700 /uL (1500-7000); Neutrophils Percent Auto 84.8 % (50-75); Platelet Count 182 X10^3/uL (150-400); Red Blood Cell Count 5.15 X10^6/uL (4.5-5.9); Red Cell Distribution Width 13.1 % (11.6-14.8); White Blood Cell Count 17.4 X10^3/uL (4.5-11.0)
[2021-10-14 21:31] LABS: Erythrocyte Sedimentation Rate 9 MM/HR (0-15)
[2021-10-14] MEDS: VANCOMYCIN 2,000 MG/400 ML PIGGYBACK 266.667 MG IV (21:38)
[2021-10-14] MEDS: VANCOMYCIN PER PHARMACY 1 REQUEST MISC (21:39)
[2021-10-14] MEDS: LIDOCAINE 2% INJ MDV 20 ML (22:13)
[2021-10-14] MEDS: BACITRACIN OINT 0.9 GM PCKT 1 APPLIC TOP (22:14)
[2021-10-14 22:43] VITALS: BP 189/99; PULSE 89; RESP 16; O2SAT 97
[2021-10-14 22:55] VITALS: O2SAT 91
[2021-10-14 22:59] VITALS: BMI 26.9
[2021-10-14 23:07] VITALS: BP 192/112; PULSE 93; RESP 19; TEMP 37.4; O2SAT 91
[2021-10-14 23:26] LABS: NT-proBNP (BNP-Adult 18+) 367 pg/mL (<125)
[2021-10-14] MEDS: SODIUM CHLORIDE 0.9% 1,000 ML 100 ML IV (23:34)
[2021-10-14 23:42] LABS: Hemoglobin A1C% w Est Avg Glu > 14.0 % (4.0-6.0)
[2021-10-15] VITALS (11 sets, daily range): BP systolic 156–201; BP diastolic 74–107; PULSE 94–107; RESP 18–22; TEMP 37.4–38.3; O2SAT 94–96
--- NOTE | 2021-10-15 00:23 | PM.HP.1 ---
History of Present Illness History of Present Illness Date Patient Seen: 10/14/21 Time Patient Seen: 23:05 Chief complaint: Left hand infection/swelling x2 days Narrative: Joel Díaz is a 61-year-old male with history marijuana and methamphetamine use, COPD and COVID infection in June 2021, and hypertension who presented to the ED complaining of left hand/thumb infection, the patient also presented with significantly Hypertensive B/P 210/112 and tachycardiac HR 114, reflective of no hypertensive medication for a reported month & last methamphetamine use just prior to arrival in the ED arrival. He initially reported some minor trauma to his left thumb and thought glass was under the nail bed.? Patient complained of pain up into the arm and into the axilla in the ED. Complains of intermittent fevers, felt generally unwell, and bodyaches. Patient denies no chills, chest pain, palpitations, abd pain, vomiting, diarrhea, JOY, cough, SOB, numbness, tingling, or recently illness.? Dr. Obrien in the ED removed the patient's thumb nail to allow for improved drainage, and started the patient on IV vancomycin and Rocephin. The patient was given 2 Percocet p.o. prior to procedure, which has left him significantly sedated upon admit in addition post methamphetamine use fatigue. Patient is unable to assist with HPI or ROS at the time of admit. He is rousable with physical stimuli, does not open his eyes, nor can he complete a statement, in the rare moments that he does answer. When stimulated and asked if he is in pain, he states that he is, because Percocet does not work for him, as he is falling back asleep not completing his thought. Patient remains hypertensive upon admit and tachycardic, temp 98.1?, BP continued to be 210/112, repeated 183/93, 189/99, HR 114, RR 16, O2 saturation 98% on room air. Patient has a white count of 17.4, with a left shift neutrophils 14,700, mono 1400, patient has hyponatremia sodium 130, hyperglycemia glucose 353, patient's lactate and procalcitonin are WNL, patient CRP 2.7. Patient's left thumb x-ray demonstrates only mild degenerative changes. Patient is admitted for left thumb cellulitis with lymphangitis of the left forearm, hypertensive urgency, hyperglycemia, hyponatremia, and methamphetamine abuse. Patient History Medical History (Updated 10/15/21 @ 00:57 by CAMILO White) Hepatitis C Hypertension Marijuana use Methamphetamine abuse Tobacco abuse Surgical History History of carpal tunnel surgery of right wrist History of right knee surgery Family & Social History Family History Mother Heart disease Father Cancer Social History: household members none Prior Living Arrangements House Safety & Behavioral: Feels Safe in Current Yes Environment Been Physically Hurt or No Threatened By a Person Suicidal Ideation Description None Tobacco & Substance use: Tobacco type cigarettes,cannabis/marijuana Smoking Status Current every day smoker Smoking packs per day 0.5 alcohol intake former alcohol intake frequency 0-2 drinks per day Substance Use Type marijuana,methamphetamine Meds Home Medications and Allergies Home Medications Medication Instructions Recorded Confirmed Type No Known Home Medications 10/14/21 10/14/21 History Allergies Allergy/AdvReac Type Severity Reaction Status Date / Time cephalexin [From KEFLEX] Allergy Severe Rash Verified 06/26/21 15:32 codeine [CODEINE] Allergy Severe ANAPHYLACTIC Verified 06/26/21 15:32 SHOCK NYLON ADHESIVE TAPE Allergy Unknown Uncoded 06/26/21 15:32 Review of Systems Review of Systems Narrative: Patient unable to participate in ROS due to over sedation from pain medication in the ED for procedure. Exam Vital Signs (past 8 hours): - 10/14/21 18:13 10/14/21 22:43 10/14/21 22:55 Temperature 98.1 F Pulse Rate 114 H 89 Respiratory Rate 18 16 Blood Pressure 210/112 H 189/99 H Pulse Oximetry 98 97 91 10/14/21 23:07 Temperature 99.4 F Pulse Rate 93 H Respiratory Rate 19 Blood Pressure 192/112 H Pulse Oximetry 91 Oxygen Delivery Method Room Air Oxygen Flow Rate 0 Narrative Exam Narrative: General: Patient is a disheveled thin appearing male, sedated and sleeping, in no distress at this time. HEENT: Normocephalic, atraumatic, mucous membranes are dry. Neck is supple and symmetric, trachea is midline, Negative for JVD Chest: Normal AP diameter and contour without kyphoscoliosis, no nasal flaring, retractions, or tachypneic labored Lungs: Auscultation of all lung winn are coarse decreased but equal with occasional expiratory wheezing without rhonchi, or rales. Cardio: Tachycardiac rate and rhythm with 3/6 systolic ejection murmur, and without rubs, or gallops, no carotid bruit, no cardiac pulsations present. Abdomen: Soft nontender, negative for organomegaly, or masses. Bowel sounds are present in all 4 quadrants without guarding or rebound, no CVA tenderness. Musculoskeletal: Left Thumb is bandaged, no drainage noted-skin around dressing is warm, swollen tender with decreased region of motion because of the edema, with lymphangitic streaking from the thumb up to the distal area of his humerus.? Left axillary adenopathy, intact radial and pedal pulses are normal. Skin: warm dry intact with the exception of the above noted. Neuro: Moderately sedated but will rouse momentarily, without opening his eyes to physical stimli. Psych: Patient has a poor-kept appearance, unable to asses due to sedation at this time. Objective Labs Result Diagrams: 10/14/21 20:05 10/14/21 20:05 Labs: Laboratory Results - last 24 hr 10/14/21 10/14/21 10/14/21 19:49 20:05 20:05 WBC 17.4 H RBC 5.15 Hgb 14.8 Hct 43.7 MCV 84.9 MCH 28.8 MCHC 34.0 RDW 13.1 Plt Count 182 Neut % (Auto) 84.8 H Lymph % (Auto) 6.4 L [place] % (Auto) 7.9 Eos % (Auto) 0.4 L Baso % (Auto) 0.5 Neut # (Auto) 44819 H Lymph # (Auto) 1100 [place] # (Auto) 1400 H Eos # (Auto) 100 Baso # (Auto) 100 ESR 9 Sodium 130 L Potassium 3.8 Chloride 97 L Carbon Dioxide 27 BUN 15 Creatinine 0.65 L Estimated GFR > 60.0 BUN/Creatinine Ratio 23.1 H Glucose 353 H Hemoglobin A1c Lactate Calcium 9.9 Magnesium Total Bilirubin 0.8 AST 20 ALT 18 Alkaline Phosphatase 115 C-Reactive Protein 2.7 H NT-Pro-B Natriuret Pep Total Protein 7.6 Albumin 4.4 Globulin 3.2 Albumin/Globulin Ratio 1.4 Procalcitonin SARS-CoV-2 (PCR) Negative 10/14/21 10/14/21 10/14/21 20:05 20:05 20:05 WBC RBC Hgb Hct MCV MCH MCHC RDW Plt Count Neut % (Auto) Lymph % (Auto) [place] % (Auto) Eos % (Auto) Baso % (Auto) Neut # (Auto) Lymph # (Auto) [place] # (Auto) Eos # (Auto) Baso # (Auto) ESR Sodium Potassium Chloride Carbon Dioxide BUN Creatinine Estimated GFR BUN/Creatinine Ratio Glucose Hemoglobin A1c Lactate 0.9 Calcium Magnesium 1.6 Total Bilirubin AST ALT Alkaline Phosphatase C-Reactive Protein NT-Pro-B Natriuret Pep 367 H Total Protein Albumin Globulin Albumin/Globulin Ratio Procalcitonin 0.11 SARS-CoV-2 (PCR) 10/14/21 20:05 WBC RBC Hgb Hct MCV MCH MCHC RDW Plt Count Neut % (Auto) Lymph % (Auto) [place] % (Auto) Eos % (Auto) Baso % (Auto) Neut # (Auto) Lymph # (Auto) [place] # (Auto) Eos # (Auto) Baso # (Auto) ESR Sodium Potassium Chloride Carbon Dioxide BUN Creatinine Estimated GFR BUN/Creatinine Ratio Glucose Hemoglobin A1c > 14.0 H Lactate Calcium Magnesium Total Bilirubin AST ALT Alkaline Phosphatase C-Reactive Protein NT-Pro-B Natriuret Pep Total Protein Albumin Globulin Albumin/Globulin Ratio Procalcitonin SARS-CoV-2 (PCR) Assessment & Plan Assessment & Plan narrative: Joel Díaz is a 61-year-old male with history marijuana and methamphetamine use, COPD and COVID infection in June 2021, and hypertension who presented to the ED complaining of left hand/thumb infection, the patient also presented with significantly Hypertensive B/P 210/112 and tachycardiac HR 114, and methamphetamine use just prior to arrival in the ED arrival. Dr. Liao removed his thumbnail, dressed the thumb, and started vancomycin and Rocephin in the ED. Patient is admitted for left thumb cellulitis with lymphangitis of the left forearm, hypertensive urgency, hyperglycemia, hyponatremia, and methamphetamine abuse. Patient will require IV hydration, IV antibiotics, consult by Ortho and management of his blood pressure. 1. Cellulitis left thumb (pulp space infection(felon) lymphangitic spread up the forearm to the antecubital fossa), Acute, present on admission -concerns for osteomyelitis- Ortho Consult Dr. Acharya placed -WBC 17.4, neutrophils# 14,700, mono# 1400, CRP 2.7, procalcitonin and lactate WNL -Ordered ESR, Wound & Blood culutres pending -Continue on Rocephin and vancomycin -NPO@midnight- in the event Dr. Acharya wants to take to the OR tomorrow -Elevation of the left Hand -Pain, fever, & inflammtion management 2. Hypertensive urgency in the setting of essential hypertension, acute on chronic, with tachycardia, present on admission -blood pressure is 210/112, 183/93, 189/99, heart rate 68-114 -contributing factors medication noncompliance, and methamphetamine use just prior to arrival in the ED. -patient stated that he had run out of HCTZ as his BP medication, based on his blood pressures and blood sugar will initiate 40 mg of lisinopril tomorrow once he is cleared by Dr. Acharya. - IV labetalol 10 mg Q4Hrs PRN for> 180/100, or HR >110 x 30min 3. Hyperglycemia, new diagnosis type 2 diabetes as evidence by an A1c > 14%, acute, present on admission -glucose 353, A1c>14% -this contributes to overall patient has poor health, putting him at higher risk for cardiovascular events and decreasing his ability to heal from infection. Also putting him at greater risk of developing osteomyelitis/ gangrene resulting in amputation. -patient admitted under diabetic protocol -Lantus 20 units now, then q.h.s. -coverage with low-dose sliding scale -glucose checks q.6 hours while NPO, after change to a.c. HS -patient will require diabetic education, insulin Education -outpatient follow-up with PCP within 2 weeks -dietary consult placed 4. Hyponatremia, acute, present on admission -sodium 130 -NS at 100 cc/HR -monitor electrolytes 5. Methamphetamine abuse, acute on chronic, present on admission -contributing to patient's overall poor health, and will impair patient's healing -patient education provided regarding cessation of methamphetamine abuse. Code status:DNR- per patient Surrogate decision maker: Mother Melinda Díaz COVID PCR:Negative- Positive 06/2021 COVID vaccination: Unknown DVT/VTE prophylaxis: Medication Held (possible surg), SCD's only Disposition: I have utilized all available immediate resources to obtain, update, or review the patient's current medications. I confirmed that the patient's advanced care plan is present, Code status is documented and/or surrogate decision maker is listed in the patient's medical record. Time Spent With Patient Critical Care time: I spent a total of [] minutes of critical care time on this patient's care today; this time is exclusive of procedural time.
[2021-10-15] MEDS: LABETALOL 20 MG/4 ML SYRINGE 10 MG IV (01:07)
--- NOTE | 2021-10-15 01:28 | PC.ADMIT ---
Addendum entered by Cynthia Lo R.N. 10/15/21 05:56: CBG is 311 this morning and patient continues to refuse any insulin. States see it's coming down on it's own, I don't need any insulin. Lan PEREYRA, informed. Original Note: Patient admitted at 2255 from ER per stretcher but ambulated with assistance to bed. Very sedated but does arouse to repeated verbal stimulation and touch. Will open eyes when asked to do so. Responds to questions but is very delayed. Breath sounds coarse and diminished with RA sat of 91%. HRR but has elevated BP of 192/112 at time of assessment. Denied nausea. BT present and abdomen is soft. Denies dysuria, frequency or urgency but does have history of retention and has not been taking any medications for this. Is able to move himself in bed. Is unsteady and weak on feet and states he uses walker/cane at home. Refused to have SCD's applied so instructed in ankle waving. Dressing to left thumb is CDI. Patient denied pain when asked. When asked about support person patient stated any local prostitute. Expresses wish to be DNR to both RN and [employer]. Left arm elevated on pillow and instructed to keep arm above level of heart. Placed on contact precautions as wound culture is positive for gram + cocci on gram stain. Fall risk score is high and bed alarm is activated. Was given 1/2 sandwich, orange juice and cranberry juice prior to 0000 and is has been NPO since 0000. CBG at 0018 was 394 but when attempted to give insulin patient became agitated and refused to take the insulin. States he is a type 2 diabetic and is controlled with diet. Lan PEREYRA, informed and in room to discuss with patient consequences of not taking the insulin but he continues to aggressively decline. Stated he was going to get up and piss on the wall. Provided urinal but stated he had to have BM and then proceeded to crawl out of bed on all 4's so was assisted to BSC with 2 assists. Urinated 600cc and did not have a bowel movement. Entire time patient was up he was swearing at staff and using profanity. BP rechecked at this time (prior to getting out of bed) and was 201/107. Refused to have telemetry placed to monitor while Labetolol was administered and stated we were assaulting him as Labetolol was given but did not stop RN from administering the medication. Assisted back into bed. [address] Admission Note: The patient,Joel Díaz,61 y/o, was given written information regarding hospital policies, unit procedures and contact persons. Patient's smoking status: Current every day smoker. Vital Signs - 8 hr 10/14/21 18:13 10/14/21 22:43 10/14/21 22:55 Temperature 98.1 F Pulse Rate 114 H 89 Respiratory Rate 18 16 Blood Pressure 210/112 H 189/99 H Pulse Oximetry 98 97 91 10/14/21 23:07 10/15/21 01:07 Temperature 99.4 F Pulse Rate 93 H 107 H Respiratory Rate 19 Blood Pressure 192/112 H 201/107 H Pulse Oximetry 91
[2021-10-15] MEDS: VANCOMYCIN 1,000 MG/200 ML PIGGYBACK 200 MG IV (05:51)
[2021-10-15 06:20] LABS: Add Manual Diff / Slide Review NO; Basophils Absolute Auto 100 /uL (0-100); Basophils Percent Auto 0.4 % (0-2); Eosinophils Absolute Auto 100 /uL (0-450); Eosinophils Percent Auto 0.6 % (2-4); Hematocrit 42.3 % (41-53); Hemoglobin 14.2 g/dL (13.5-17.5); Lymphocytes Absolute Auto 800 /uL (1100-4500); Lymphocytes Percent Auto 4.9 % (25-40); Mean Corpuscular HGB Conc 33.5 % (30-36); Mean Corpuscular Hemoglobin 28.6 PG (26-34); Mean Corpuscular Volume 85.2 fL (80-100); Monocytes Absolute Auto 1300 /uL (0-900); Monocytes Percent Auto 8.1 % (3-14); Neutrophils Absolute Auto 14100 /uL (1500-7000); Platelet Count 182 X10^3/uL (150-400); Red Blood Cell Count 4.96 X10^6/uL (4.5-5.9); Red Cell Distribution Width 12.8 % (11.6-14.8); White Blood Cell Count 16.4 X10^3/uL (4.5-11.0)
[2021-10-15 06:29] LABS: INR 1.1 (0.9-1.3); Prothrombin Time 11.8 SECONDS (10.1-12.7)
[2021-10-15 06:35] LABS: BUN Creatinine Ratio 17.3 (6-22); Blood Urea Nitrogen 13 mg/dL (9-20); Calcium 9.3 mg/dL (8.4-10.2); Carbon Dioxide 28 mmol/L (22-32); Chloride 100 mmol/L (98-107); Estimated Glomerular Filt Rate > 60.0 mL/min (>60); Glucose 313 mg/dL (80-110); HEMOLYSIS < 15 (0-50); Potassium 3.8 mmol/L (3.4-5.1); Sodium 132 mmol/L (137-145)
[2021-10-15 06:40] LABS: Erythrocyte Sedimentation Rate 12 MM/HR (0-15)
[2021-10-15] MEDS: cefTRIAXone 1,000 MG in SODIUM CHLORIDE 0.9% 100 ML 150 ML IV (08:15)
--- NOTE | 2021-10-15 09:04 | PC.NURSE ---
Day shift: Pt refused all meds this AM except IV antibiotics. It was explained to him the reasons for needing the meds but he still refused. Has eaten breakfast w/ no nausea.
[2021-10-15] MEDS: HYDROMORPHONE 0.5 MG INJ 0.25 MG IV (09:56)
[2021-10-15] MEDS: SODIUM CHLORIDE 0.9% 1,000 ML 100 ML IV (11:56)
[2021-10-15] MEDS: VANCOMYCIN 1,000 MG/200 ML PIGGYBACK 150 MG IV (13:27)
--- NOTE | 2021-10-15 13:38 | P.PN_ITS ---
Subjective Subjective Date Patient Seen: 10/15/21 Time Patient Seen: 07:45 Interval history: Reports continued pain, but feeling better. Discussed with ortho, does not appear to need drainage at this time. If purulence recurs may make a small cut for drainage near the nail bed but current recommendations are to continue antibiotics. If improving can discharge on PO medications. Exam Vital Signs (past 8 hours): - 10/15/21 08:00 10/15/21 09:48 10/15/21 12:00 Temperature 99.4 F Pulse Rate 102 H Respiratory Rate 22 Blood Pressure 188/97 H Pulse Oximetry 96 94 94 Oxygen Delivery Method Room Air Oxygen Flow Rate 0 Narrative Exam Narrative: General:? Patient is a disheveled thin appearing male, sedated and sleeping, in no distress at this time. HEENT:? Normocephalic, atraumatic, mucous membranes are dry.? Neck is supple and symmetric, trachea is midline,? Negative for JVD Lungs:?decreased breath sounds bilateral lung bases. Cardio:?RRR no m/r/g. Abdomen:?S NT ND Musculoskeletal:? nail bed L thumb removed, decreased ROM L thumb, extremely tender, minimal warmth, no apparent purulent drainage currently. Skin: warm dry intact with the exception of the above noted.? Neuro:?sleepy but arousable, oriented. Objective Labs Result Diagrams: 10/15/21 05:45 10/15/21 05:45 Labs: Laboratory Results - last 24 hr 10/14/21 10/14/21 10/14/21 19:49 20:05 20:05 WBC 17.4 H RBC 5.15 Hgb 14.8 Hct 43.7 MCV 84.9 MCH 28.8 MCHC 34.0 RDW 13.1 Plt Count 182 Neut % (Auto) 84.8 H Lymph % (Auto) 6.4 L [place] % (Auto) 7.9 Eos % (Auto) 0.4 L Baso % (Auto) 0.5 Neut # (Auto) 19146 H Lymph # (Auto) 1100 [place] # (Auto) 1400 H Eos # (Auto) 100 Baso # (Auto) 100 ESR 9 PT INR Sodium 130 L Potassium 3.8 Chloride 97 L Carbon Dioxide 27 BUN 15 Creatinine 0.65 L Estimated GFR > 60.0 BUN/Creatinine Ratio 23.1 H Glucose 353 H Hemoglobin A1c Lactate Calcium 9.9 Magnesium Total Bilirubin 0.8 AST 20 ALT 18 Alkaline Phosphatase 115 C-Reactive Protein 2.7 H NT-Pro-B Natriuret Pep Total Protein 7.6 Albumin 4.4 Globulin 3.2 Albumin/Globulin Ratio 1.4 Procalcitonin SARS-CoV-2 (PCR) Negative 10/14/21 10/14/21 10/14/21 20:05 20:05 20:05 WBC RBC Hgb Hct MCV MCH MCHC RDW Plt Count Neut % (Auto) Lymph % (Auto) [place] % (Auto) Eos % (Auto) Baso % (Auto) Neut # (Auto) Lymph # (Auto) [place] # (Auto) Eos # (Auto) Baso # (Auto) ESR PT INR Sodium Potassium Chloride Carbon Dioxide BUN Creatinine Estimated GFR BUN/Creatinine Ratio Glucose Hemoglobin A1c Lactate 0.9 Calcium Magnesium 1.6 Total Bilirubin AST ALT Alkaline Phosphatase C-Reactive Protein NT-Pro-B Natriuret Pep 367 H Total Protein Albumin Globulin Albumin/Globulin Ratio Procalcitonin 0.11 SARS-CoV-2 (PCR) 10/14/21 10/15/21 10/15/21 20:05 05:45 05:45 WBC 16.4 H RBC 4.96 Hgb 14.2 Hct 42.3 MCV 85.2 MCH 28.6 MCHC 33.5 RDW 12.8 Plt Count 182 Neut % (Auto) 86.0 H Lymph % (Auto) 4.9 L [place] % (Auto) 8.1 Eos % (Auto) 0.6 L Baso % (Auto) 0.4 Neut # (Auto) 43711 H Lymph # (Auto) 800 L [place] # (Auto) 1300 H Eos # (Auto) 100 Baso # (Auto) 100 ESR PT INR Sodium 132 L Potassium 3.8 Chloride 100 Carbon Dioxide 28 BUN 13 Creatinine 0.75 Estimated GFR > 60.0 BUN/Creatinine Ratio 17.3 Glucose 313 H Hemoglobin A1c > 14.0 H Lactate Calcium 9.3 Magnesium Total Bilirubin AST ALT Alkaline Phosphatase C-Reactive Protein NT-Pro-B Natriuret Pep Total Protein Albumin Globulin Albumin/Globulin Ratio Procalcitonin SARS-CoV-2 (PCR) 10/15/21 10/15/21 05:45 05:45 WBC RBC Hgb Hct MCV MCH MCHC RDW Plt Count Neut % (Auto) Lymph % (Auto) [place] % (Auto) Eos % (Auto) Baso % (Auto) Neut # (Auto) Lymph # (Auto) [place] # (Auto) Eos # (Auto) Baso # (Auto) ESR 12 D PT 11.8 INR 1.1 Sodium Potassium Chloride Carbon Dioxide BUN Creatinine Estimated GFR BUN/Creatinine Ratio Glucose Hemoglobin A1c Lactate Calcium Magnesium Total Bilirubin AST ALT Alkaline Phosphatase C-Reactive Protein NT-Pro-B Natriuret Pep Total Protein Albumin Globulin Albumin/Globulin Ratio Procalcitonin SARS-CoV-2 (PCR) [facility] Medical History (Updated 10/15/21 @ 00:57 by JUAN White-) Hepatitis C Hypertension Marijuana use Methamphetamine abuse Tobacco abuse Surgical History History of carpal tunnel surgery of right wrist History of right knee surgery Family History Mother Heart disease Father Cancer Social History household members: none Smoking Status: Current every day smoker alcohol intake: former Assessment & Plan Assessment & Plan narrative: Joel Díaz is a 61-year-old male with history marijuana and methamphetamine use, COPD and COVID infection in June 2021, and hypertension who presented to the ED complaining of left hand/thumb infection. Patient is admitted for left thumb cellulitis with lymphangitis of the left forearm, hypertensive urgency, hyperglycemia, hyponatremia, and methamphetamine abuse.? 1. Cellulitis left thumb with lymphangitic spread up the forearm to the antecubital fossa), Acute, present on admission -given improvement, minimal CRP, osteo less likely, no MRI at this time unless symptoms do not improve -discussed with ortho, no need for surgical intervention at this time, continue IV antibiotics. -continue ceftriaxone and vancomycin pending wound cultures. 2. Hypertensive urgency in the setting of essential hypertension, acute on chronic, with tachycardia, present on admission -lisinopril and HCTZ started, continue to adjust as needed. 3. Hyperglycemia, new diagnosis type 2 diabetes as evidence by an A1c > 14%, acu te, present on admission -glucose 353, A1c>14% -this contributes to overall patient has poor health, putting him at higher risk for cardiovascular events and decreasing his ability to heal from infection.? Also putting him at greater risk of developing osteomyelitis/ gangrene resulting in amputation. -patient admitted under diabetic protocol -patient refused insulin despite multiple attempts at education. -outpatient follow-up with PCP within 2 weeks -dietary consult placed 4. Hyponatremia, acute, present on admission -sodium 130 -NS at 100 cc/HR -monitor electrolytes 5. Methamphetamine abuse, acute on chronic, present on admission -contributing to patient's overall poor health, and will impair patient's healing -patient education provided regarding cessation of methamphetamine abuse. Code status:DNR- per patient Surrogate decision maker:? Mother Melinda GARCIA PCR:Negative- Positive 06/2021 Disposition: remains regular floor. I have utilized all available immediate resources to obtain, update, or review the patient's current medications. I confirmed that the patient's advanced care plan is present, Code status is documented and/or surrogate decision maker is listed in the patient's medical record. Time Spent With Patient Critical Care time: I spent a total of [] minutes of critical care time on this patient's care today; this time is exclusive of procedural time.
[2021-10-15] MEDS: hydroCHLOROthiazide 25 MG TABLET PO (13:44)
--- NOTE | 2021-10-15 15:11 | PC.NURSE ---
Day shift: Pt not using his call light today at all. Bed alarm is on and BSC is next to his bed. He has been OOB to the BSC 3 times so far this shift. Urine output has been good w/ clear yellow voids. Pt did do some swearing this afternoon and he was told by this sports book writer that that was not going to be ok. He has not cursed since and has been saying thank you to care. He is asleep now and has been asleep approx 75% of this shift so far.
--- NOTE | 2021-10-15 16:07 | CM.DANOTE ---
DCP Assessment: Patient is a 61 yr old male who was admitted for left thumb cellulitis, hyperglycemia- glucose of 353 and A1C 14. Patient currently lives in [place] and lives by himself. Patient states his mother lives in [place] as well and is available if he needs her. Patient is an active drug user. CM asked if he is wanting any information on treatment options for his Drug use and he stated he does not want an services. i was mentioned that there was a concerned for SI with this patient. when CM met with him he was A&O x4, patient is thin and does look disheveled. when asked about his drug use he stated he has used for most of his life but is functional. Patient when asked if he has thoughts of harming himself stated that he does occasionally but does not have a formal plan. just has passing thoughts from time to time. CM asked the patient if he thinks of harming others and patient stated only when someone gets in his face but did stated that doesn't happen often and he isn't thinking of harming anyone currently. Currently not having SI. CM gave the patient information of crisis line and mental health resources available with [facility]. Patient stated he would keep the resources but doesn't want any other information. Patient is Independent with all ADLS and states he drives at his baseline. I: Medicare and Medicaid Plan: DC home with mother providing transport. no identified DC planning needs at this time. Cm department will follow incase patient needs IV abx to develop a safe DC plan but at this time the plan seems to be home with PO abx. Kylie her RNlogistics center manager Discharge Planning/Care Management Discharge Assessment Start: 10/15/21 16:02 Freq: Status: Active Protocol: Document 10/15/21 16:02 (Rec: 10/15/21 16:06 [id number]) Discharge Planning Assessment Assigned Information Receptionist Kylie Her RNlogistics center manager DPOA/Assigned Designee Name Abby thompson Contact Information [phone] Advance Directives? No History Provided By Patient Prior Living Arrangements House Household Members none Type of transporation used prior to Drives own vehicle admit Independent with ADL's Yes Is patient alert and oriented? Yes Caregiver for Another No Barriers to Discharge No Transportation Arrangement If pt does d/c to home he says his mother, Shaila Bone, will pick him up. She lives in [place]: [phone] Referrals Initiated None needed Additional Comment Review of legal financial specialist assessment show pt with apparent active drug use/ marijuana and methamphetimine (with hx IV drug use) and frequent thoughts of harming self or others. . Whiteboard Updated in Patient Room with Yes name and ext. # of Information Receptionist Review Status In Process Next Review Type Continued Stay Review
--- NOTE | 2021-10-15 16:13 | DIET.CONS ---
Dietary Consultation Note Admission Date: 10/14/2021 22:22 Assessment: RD attempted consult c pt but pt sleeping. Per X RAY CONSULTANT pt states diet controlled DM, refusing insulin this hospitalization despite BGs >200. X RAY CONSULTANT reports pt tried ordering high carb meal. Pt in need of education on relationship between chronic hyperglycemia and infections. Care to be taken as pt active meth user in withdrawl. Ht: 170.18 cm Wt: 78 kg BMI: 26.9 UBW: Last BM: 10/14/21 (10/14/21 22:59) MNA: 13 Lacho Score: 19 Diet: 10/15/21 Breakfast Carbohydrate Consistent Diet Diet Modifications: Carbohydrate level: Medium (3 CHO) Nutrition Percent Meal Consumed 100% 10/15/21 09:48 Labs: RBC 4.96 X10^6/uL (4.5-5.9) 10/15/21 05:45 Hgb 14.2 g/dL (13.5-17.5) 10/15/21 05:45 Hct 42.3 % (41-53) 10/15/21 05:45 Creatinine 0.75 mg/dL (0.66-1.25) 10/15/21 05:45 Hemoglobin A1c > 14.0 % (4.0-6.0) H 10/14/21 20:05 Lactate 0.9 mmol/L (0.7-2.1) 10/14/21 20:05 NT-Pro-B Natriuret Pep 367 pg/mL (<125) H 10/14/21 20:05 Electronically Signed by: Christina Matson 10/15/21 16:13 Clinical Dietitian [address] [address]
--- NOTE | 2021-10-15 16:58 | PC.NURSE ---
Day shift: Pt has refused all meds today except for the IV antibiotics and the BP the Pt requested. Dr Ingram is aware of this.
[2021-10-15] MEDS: DOXYCYCLINE HYCLATE 100 MG TABLET PO (21:00)
[2021-10-15] MEDS: CEFDINIR 300 MG CAPSULE PO (21:00)
--- NOTE | 2021-10-15 22:09 | PC.NURSE ---
Pt is refusing vitals.
[2021-10-16 01:47] VITALS: BP 187/91; PULSE 91; RESP 19; TEMP 37.2; O2SAT 95
[2021-10-16 01:50] VITALS: O2SAT 95
[2021-10-16 05:00] VITALS: BP 173/91; PULSE 78; RESP 20; TEMP 37; O2SAT 95
[2021-10-16 08:39] VITALS: O2SAT 96
[2021-10-16] MEDS: DOXYCYCLINE HYCLATE 100 MG TABLET PO (09:17)
[2021-10-16] MEDS: hydroCHLOROthiazide 25 MG TABLET PO (09:17)
[2021-10-16 09:38] VITALS: O2SAT 97
--- NOTE | 2021-10-16 10:05 | PC.NURSE ---
Day shift: Pt left unit at approx 1000 AMA. Signed with an X. Notes made on the AMA paperwork. He has all belongings. Refused to have his thumb wound dressed and said It doesn't make any difference if it's covered or not. scripts sent to Pt's pharmcay by Dr Ingram. Will cantact Pt's family member to let them know scripts are there and he needs to take them all.
--- NOTE | 2021-10-16 10:07 | P.DS_ITS ---
History of Present Illness History of Present Illness Date Patient Seen: 10/16/21 Time Patient Seen: 08:45 Chief complaint: Left hand infection/swelling x2 days Narrative: Per Janet Montenegro, ADOPTION SPECIALIST-: Joel Díaz is a 61-year-old male with history marijuana and methamphetamine use, COPD and COVID infection in June 2021, and hypertension who presented to the ED complaining of left hand/thumb infection, the patient also presented with significantly Hypertensive B/P 210/112 and tachycardiac HR 114, reflective of no hypertensive medication for a reported month & last methamphetamine use just prior to arrival in the ED arrival.? He initially reported some minor trauma to his left thumb and thought glass was under the nail bed.? Patient complained of pain up into the arm and into the axilla in the ED.? Complains of intermittent fevers, felt generally unwell, and bodyaches. Patient denies no chills, chest pain, palpitations, abd pain, vomiting, diarrhea, JOY, cough, SOB, numbness, tingling, or recently illness.? Dr. Obrien in the ED removed the patient's thumb nail to allow for improved drainage, and started the patient on IV vancomycin and Rocephin.? The patient was given 2 Percocet p.o. prior to procedure, which has left him significantly sedated upon admit in addition post methamphetamine use fatigue.? Patient is dawood ble to assist with HPI or ROS at the time of admit.? He is rousable with physical stimuli, does not open his eyes, nor can he complete a statement, in the rare moments that he does answer. When stimulated and asked if he is in pain, he states that he is, because Percocet does not work for him, as he is falling back asleep not completing his thought. Patient remains hypertensive upon admit and tachycardic, temp 98.1?, BP continued to be 210/112, repeated 183/93, 189/99, HR 114, RR 16, O2 saturation 98% on room air.? Patient has a white count of 17.4, with a left shift neutrophils 14,700, mono 1400, patient has hyponatremia sodium 130, hyperglycemia glucose 353, patient's lactate and procalcitonin are WNL, patient CRP 2.7.? Patient's left thumb x-ray demonstrates only mild degenerative english es. Patient is admitted for left thumb cellulitis with lymphangitis of the left forearm, hypertensive urgency, hyperglycemia, hyponatremia, and methamphetamine abuse. Discharge Providers Provider Date of admission: 10/14/21 22:22 Discharge Date: 10/16/21 Consults: 10/14/21 23:56 Consult to Branch Store Manager Routine Comment: meth use 10/15/21 00:19 Consult to Dietitian, Adult Routine Comment: Reason For Exam: Meth, new dx DM, A1c>14% Discharge provider: Anibal Ingram DO Summary Hospital Course Discharge Diagnosis: 1. Cellulitis left thumb, possible abscess of left thumb with lymphangitic spread up the forearm to the antecubital fossa), Acute, present on admission 2. Hypertensive urgency in the setting of essential hypertension, acute on c hronic, with tachycardia, present on admission 3. Hyperglycemia, new diagnosis type 2 diabetes as evidence by an A1c > 14%, acute, present on admission 4. Hyponatremia, acute, present on admission 5. Methamphetamine abuse, acute on chronic, present on admission Hospital Course: Joel Díaz is a 61-year-old male with history marijuana and methamphetamine use, COPD and COVID infection in June 2021, and hypertension who presented to the ED complaining of left hand/thumb infection. Patient is admitted for left thumb cellulitis and possible abscess with lymphangitis of the left forearm, hypertensive urgency, hyperglycemia, hyponatremia, and methamphetamine abuse.?Orthopedic surgery was contacted and recommended continued antibiotics as no purulence could be seen no HD#1. Thumb appeared to be improving on HD#2 but also possibly with a fluid collection. Before further interventions could be performed patient left against medical advice. He was prescribed oral doxycycline as an outpatient based on culture results available. He was also g iven a prescription for HCTZ which he states he has taken in the past but ran out of. He refused medical therapies for diabetes despite his A1c of >14%. Exam Vital Signs (past 8 hours): - 10/16/21 05:00 10/16/21 08:39 Temperature 98.6 F Pulse Rate 78 Respiratory Rate 20 Blood Pressure 173/91 H Pulse Oximetry 95 96 Oxygen Delivery Method Room Air Oxygen Flow Rate 0 Narrative Exam Narrative: General:? Patient is a disheveled thin appearing male, sedated and sleeping, agitated. HEENT:? Normocephalic, atraumatic, mucous membranes are dry.? Neck is supple and symmetric, trachea is midline,? Negative for JVD Lungs:?decreased breath sounds bilateral lung bases. Cardio:?RRR no m/r/g. Abdomen:?S NT ND Musculoskeletal:? nail bed L thumb removed, decreased ROM L thumb but improving, Improved erythema. minimal warmth, possible purulent collection under the nail bed Skin: warm dry intact with the exception of the above noted.? Neuro:?agitated, oriented. Objective Labs Result Diagrams: 10/15/21 05:45 10/15/21 05:45 [facility] Medical History (Updated 10/15/21 @ 00:57 by CAMILO White) Hepatitis C Hypertension Marijuana use Methamphetamine abuse Tobacco abuse Surgical History History of carpal tunnel surgery of right wrist History of right knee surgery Family History Mother Heart disease Father Cancer Social History household members: none Smoking Status: Current every day smoker alcohol intake: former Discharge Plan Discharge Plan Patient Disposition: Left Against Medical Advice Discharge orders & Medications Prescriptions: New hydrochlorothiazide 25 mg Tablet 25 mg PO DAILY 30 Days Qty: 30 0RF doxycycline hyclate 100 mg Tablet 100 mg PO BID 14 Days Qty: 28 0RF Discharge Data Attending Provider: Janet Montenegro
--- NOTE | 2021-10-16 10:35 | PC.NURSE ---
Day shift: Linda Díaz called and informed that Pt's antibiotic is at [facility] in [facility] and he needs to take them all as directed. Also informed her that Guillermo needs to keep the wound/infection clean and covered. She said she would do her best. sent scripts to the above pharmacy electronic. Pt has also been given his belongings back from the safe by JIGAR Campos. JIGAR Campos is writing note too. Room cleaned and no ID was found.
--- NOTE | 2021-10-16 10:48 | PC.NURSE ---
1040 - After leaving AMA, pt called to report belongings left behind. Belongs retrieved from safe. This RN met the patient in the parking lot of the [facility] building. Pt unsteady. States that he needs to sit down. Directed to the bench, however pt states No, I am just going to sit on the ground. Encourage pt to rest up against light post. Review belongings form. Returned, wallet, $28 dinero, a knife, cigarettes and 2 lighters. Pt reports his ID is missing. I let the patient know that I would check room again, and call him if found. I reminded patient that antibiotic RX was electronically sent to the pharmacy and that he should pick this up and take as directed. Pt states What I need is a doctor that can do things right in the first place. I asked patient if his family was coming to pick him up, he states, No, my dope dealer is, at least that way he gets another payment. Encourage patient to participate is safe, self care, again offered to assist patient to the nearby bench. Pt refused.
== END 2021-10-16 10:50 | disposition left against medical advice (07) ==
LOC: ED 22:21 → AC 22:23
PROVIDERS: Admitting Provider Nurse Practitioner Family; Emergency Provider Emergency Medicine; Referring Provider Emergency Medicine; Visit Provider Nurse Practitioner Family
DX: L03.012 Cellulitis of left finger (principal); Z53.29 Procedure and treatment not carried out because of patient's decision for other reasons; I16.0 Hypertensive urgency; I10 Essential (primary) hypertension; E11.65 Type 2 diabetes mellitus with hyperglycemia; E87.1 Hypo-osmolality and hyponatremia; J44.9 Chronic obstructive pulmonary disease, unspecified; F15.10 Other stimulant abuse, uncomplicated; F12.90 Cannabis use, unspecified, uncomplicated; F17.210 Nicotine dependence, cigarettes, uncomplicated; Z86.16 Personal history of COVID-19; Z20.822 Contact with and (suspected) exposure to COVID-19
CPT/HCPCS: 11750; 36415; 73140; 80048; 80053; 82962; 83036; 83605; 83735; 83880; 84145; 85025; 85610; 85651; 86140; 87040; 87070; 87075; 87077; 87147; 87186; 87205; 87635; 93005; 93010; 94760; 96361; 96365; 96366; 96367; 96375; 99284; 99406; C9803; G0378; J0696; J1170; J1815; J2405